=== PATIENT | female | born 1945 | race Caucasian/White ===

== ENCOUNTER → 2017-03-25 | Outpatient (CLI) | payer OTHER ==
[~2017-03-25] MED LIST: ACETAMINOOPHEN-1 TAB PO; ACETAMINOPHEN PO; ADCIRCA20 MG PO; AGGRENOX1 CAP PO; ALB/IPRATROPIUM/1 E1 IH; ALBUTEROL17 G1 INH; ALBUTEROL17 GM; ALBUTEROL17 GM INH; ALBUTEROL2.5 MG/3 M; ALBUTEROL20 ml INH; ALDACTONE PO; ALDACTONE25 MG; ALDACTONE25 MG PO; AMITRYPTYLINE PO; AMLODIPINE BESYL5 MG PO; ANTACID650 MG PO; APAP325 MG PO; APRESOLINE PO; ASPIRIN PO; ASPIRIN1 GM PO; ASPIRIN81 M1 PO; ASPIRIN81 MG; ASPIRIN81 MG PO; ATIVAN PO; ATIVAN2 MG PO; AUGMENTIN PO; AUGMENTIN875 MG PO; AZITHROMYCIN500 MG PO; BENICAR PO; BIDIL PO; BUMEX PO; BUMEX2 MG PO; CAL-CITRATE PL1 EACH PO; CALAN SR PO; CALCIUM + D 6001 TA1 PO; CALCIUM 500 +1 EAC3 PO; CALCIUM500 M1 PO; CARVEDILOL12.5 MG PO; CATAPRES-TTS-20.2 MG PO; CATAPRES0.1 MG PO; CEFTIN PO; CLONIDINE HCL0.3 MG; CLONIDINE HCL0.3 MG PO; CLONIDINE PO; CLOPIDOGREL75 MG PO; COMBIVENT MININEB; COMBIVENT14.7 GM; COREG PO; COREG12.5 MG PO; COVERA HS PO; COZAAR100 MG; COZAAR100 MG PO; FLOVENT HFA12 GM INH; FOSAMAX PO; FOSAMAX70 MG PO; FUROSEMIDE40 MG PO; GLUCOVANCE 5/501 TA1 PO; HALDOL0.5 MG PO; HCTZ PO; HUMIBID; HYDRALAZINE HC100 MG; HYDRALAZINE HC100 MG PO; HYDRALAZINE HCL25 MG; HYDRALAZINE HCL25 MG PO; HYDRALAZINE HCL50 MG PO; ISORDIL PO; ISOSORBIDE DINI10 MG PO; ISOSORBIDE DINI40 M1 PO; K-DUR20 ME1 PO; KCL PO; LANTUS SOLOSTAR3 ML SUBQ; LANTUS100 U/M1 SQ; LANTUS100 U/M1 SUBQ; LANTUS100 U/ML SUBQ; LASIX PO; LASIX20 MG; LASIX20 MG PO; LASIX80 MG PO; LEVEMIR100 U/ML SQ; LIPITOR PO; LIPITOR40 MG; LIPITOR40 MG DOB; LIPITOR40 MG PO; LISINOPRIL PO; LOPRESSOR PO; LOPRESSOR100 MG PO; LORAZEPAM1 MG PO; METOLAZONE2.5 MG PO; METOPROLOL TAR25 MG PO; METOPROLOL TART25 MG PO; METRONIDAZOLE250 MG PO; NABUMETONE PO; NILSTAT PO; NISOLDIPINE17 MG PO; NITROFURANTOIN50 M1 PO; NITROGLYGERIN0.4 MG SL; NORVASC PO; NOVOLOG; NOVOLOG FL100 UNIT/1; NOVOLOG FL100 UNIT/1 SUBQ; NOVOLOG SUBQ; NOVOLOG100 U/M1 SQ; NOVOLOG100 U/M2 SUBQ; NOVOLOG100 U/M3 SQ; NOVOLOG100 U/ML INJ; NOVOLOG100 U/ML SQ; NOVOLOG100 U/ML SUBQ; NOVOLOG100 UNITS/; NOVOLOG100 UNITS/ INJ; OYSTER SHELL C500 MG; PLAVIX PO; PLAVIX300 MG; POSTURE600 MG PO; PREDNISONE PO; PREDNISONE10 MG PO; PREMARIN PO; PREMARIN0.3 MG PO; PREMARIN0.45 MG PO; PRINCIPEN500 M1 PO; PRINIVIL10 MG PO; PRINIVIL40 MG PO; PROCRIT SUBQ; PROCRIT2000 UNIT/; PROCRIT20000 U/ML IJ; PROCRIT20000 U/ML SUBQ; PROTONIX; PROTONIX PO; PROTONIX20 MG PO; PULMICORT0.5 MG/2 M; PULMICORT0.5 MG/2 M IH; SINGULAIR PO; SINGULAIR5 MG PO; SODIUM BICARBO650 MG PO; SUPER CALCIUM1 EACH PO; SYMBICORT PO; TACLONEX OINTME60 GM TP; TOPROL XL 50 MG50 M1 PO; TRICOR PO; TUMS CALCI300 MG( 75; TYLENOL #3 PO; VICODIN PO; VOLMAX4 MG PO; VOSPIRE ER8 MG PO; ZAROXYLYN PO; ZESTRIL40 MG PO; ZITHROMAX PO; ZOLOFT PO; ZOLOFT100 MG PO; ZOLOFT20 MG/1 ML; [UNRECOGNIZED DRUG - CODE] IJ
--- NOTE | ~2017-03-25 | CR63 ---
[facility] A Service of [facility] RADIOLOGY TEXT RESULTS PATIENT: COLBY BORGES LOCATION: [facility] : 44 UNIT #: [id number] AGE: [address]: KIM NATHAN SEX: F ORDER DR: [id number] [facility] [address]. [place], [place] [address] [id number] MR#: [id number] Acc #: [id number] NAME: COLBY BORGES : 1945 SEX: F STUDY DATE/TIME: 03/25/2017 15:13 UNIT: [facility] ROOM: STUDY DESCRIPTION: CR Chest 2 View Attending Physician: Deborah Yusuf Referring Physician: Deborah Yusuf Ordering Physician: Deborah Yusuf Primary Care Physician: Norma Castro M.D. MEDICAL IMAGING REPORT This report is preliminary unless electronic signature is present EXAM PA and lateral chest, 03/25. COMPARISON 04/30/2014 HISTORY Cough, shortness of breath for 1-2 weeks. TECHNIQUE PA and lateral views are obtained. FINDINGS The heart size is normal. There are postop changes of bypass surgery. Chronic blunting of the left costophrenic angle. The lungs are clear with no acute process seen. CONCLUSION Status post CABG. Chronic pleural scarring at the left base. No acute process identified. Dictated by... Bry Proctor M.D. THIS IS AN ELECTRONICALLY VERIFIED REPORT Bry Proctor M.D. at 03/25/2017 5:00 PM DOROTEO/kyle TD: 03/25/2017 16:35 JOB #: [id number] [facility] A Service [facility] RADIOLOGY TEXT RESULTS PATIENT: COLBY BORGES LOCATION: [facility] : 44 UNIT #: [id number] AGE: [address]: KIM NATHAN SEX: F ORDER DR: MEDICAL IMAGING REPORT Page 1 of 1 COPY
== END | disposition home or self-care (01) ==
LOC: CRAD 14:53
DX: R05 Cough (principal); J98.4 Other disorders of lung; Z95.1 Presence of aortocoronary bypass graft
CPT/HCPCS: 71020

== ENCOUNTER 2017-04-18 21:50 | Inpatient (IN) | payer OTHER ==
--- NOTE | ~2017-04-18 | EKG ---
PATIENT: COLBY BORGES UNIT #: [id number] Ventricular Rate: 74 BPM Atrial Rate: 74 BPM P-R Interval: 158 ms QRS Duration: 88 ms Q-T Interval: 418 ms QTC Calculation(Bezet): 463 ms P Veyo: 41 degrees Calculated R Veyo: 5 degrees Calculated T Veyo: 92 degrees Diagnosis Line: Normal sinus rhythm Diagnosis Line: Nonspecific T wave abnormality Diagnosis Line: Abnormal ECG Diagnosis Line: When compared with ECG of 18-APR-2017 21:56, Diagnosis Line: (unconfirmed) Diagnosis Line: Criteria for Septal infarct are no longer Present Diagnosis Line: Confirmed by NASREEN GREGORY MD ([id number]) on 04/20/2017 Diagnosis Line: 4:51:09 PM INTERPRETING MD: RBI MENDOZA
--- NOTE | ~2017-04-18 | CO ---
Unit #: [id number] #: [id number] Patient: COLBY BORGES [id number] [address] [address] [id number] I MR#: [id number] NAME: COLBY BORGES ROOM: 550 Age: 72 Sex: F Admission Date: 04/19/2017 : 1945 Attending Physician: Norma Castro M.D. Primary Care Physician: Norma Castro M.D. CONSULTATION REPORT ADDENDUM MEDICATIONS Solu-Medrol, Levemir, Lovenox, Lipitor, furosemide, sodium bicarbonates, spironolactone, Norvasc, Singulair, carvedilol, Os-Jerod, Combivent, Catapres, hydralazine, and Procrit. ASSESSMENT AND PLAN I will order IV Lasix in between her blood transfusion tonight and additionally I am going to hold her spironolactone to make sure her a.m. potassium does not rise. Dictated by... Steffany Shen M.D. ANNI/milton TD: 04/21/2017 03:16 JOB #: [id number] CONSULTATION REPORT Page 1 of 1 X Steffany Shen MD X CONSULTATION REPORT
--- NOTE | ~2017-04-18 | CO ---
Unit #: [id number] #: [id number] Patient: COLBY BORGES [id number] [address] [place], [place] [address] [id number] I MR#: [id number] NAME: COLBY BORGES ROOM: 550 Age: 72 Sex: F Admission Date: 04/19/2017 : 1945 Attending Physician: Norma Castro M.D. Primary Care Physician: Norma Castro M.D. Consultation Date: 04/19/2017 CONSULTATION REPORT REASON FOR CONSULTATION Cardiovascular management. HISTORY OF PRESENT ILLNESS This is a 72-year-old white female known to Dr. Valverde, with a past medical history of coronary artery disease with previous myocardial infarction, status post coronary artery bypass grafting in 2006. The patient had a right and left cardiac catheterization 09/01/2012, which revealed significant disease in the [place] right coronary artery and LAD. The first diagonal was 90%. Four out of four grafts were patent. PA pressures were elevated at 55/25. The patient was noted to have mitral regurgitation. No left ventriculogram was completed. A FIDELIA was completed on 05/02/2014, which revealed an ejection fraction greater than or equal to 55%, with mild to moderate mitral regurgitation and aortic regurgitation. There was also mild tricuspid regurgitation. Additional past medical history includes hypertension, hyperlipidemia, chronic kidney disease, anemia, osteoarthritis and reformed tobacco abuse. The patient presented to the hospital with shortness of breath. She is a poor historian and is confused to time and situation. There is no family at the bedside. On exam she denies chest pain. She states that the shortness of breath is chronic. She has had some mild lower extremity edema. There are no reports of dizziness, palpitations or syncope. She did fall recently and does have some bruising on her right ankle and foot. It is unclear if she had any precipitating symptoms or loss of consciousness. The family will be contacted for further information. She was admitted to the hospital for shortness of breath and possible congestive heart failure. Labs revealed a BNP of 1,408. Creatinine was 1.9 with a BUN of 35. Hemoglobin was 9.2 and now 7.8. There are no reports of bleeding. Cardiac enzymes were negative. EKG revealed sinus rhythm with a PVC and poor R wave progression. PAST MEDICAL HISTORY 1. Coronary artery disease with previous myocardial infarction, status post coronary artery bypass grafting in 2006. 2. Right and left cardiac catheterization 09/01/2012 revealed mid LAD and right coronary artery [place] disease. First diagonal 90%. Four out of four grafts patent. PA pressure 55/25. Positive mitral regurgitation. No left ventriculogram. See full report for details. 3. FIDELIA 06/30/2012 revealed an ejection fraction of 50%. Mild to moderate mitral and tricuspid regurgitation. Mild aortic regurgitation. 4. Repeat FIDELIA 05/02/2014 revealed an ejection fraction greater than Unit #: [id number] #: [id number] Patient: COLBY BORGES S or equal to 55%. Mild to moderate mitral and aortic regurgitation. Mild tricuspid regurgitation. No AFB, shunt or thrombus. 5. Hypertension, resistant. 6. Hyperlipidemia. 7. Insulin dependent diabetes. 8. Chronic kidney disease stage 3. 9. Chronic anemia, on Procrit. 10. Osteoarthritis. 11. Seizures. 12. Anxiety. 13. Allergy to IV dye/iodine. 14. Reformed tobacco abuse. PAST SURGICAL HISTORY 1. Cardiac catheterization. 2. Coronary artery bypass grafting. 3. EGD and colonoscopy in 2011 with gastritis, esophagitis, diverticular disease and small internal hemorrhoids. SOCIAL HISTORY The patient is a reformed smoker. There are no reports of alcohol or illicit drug use. FAMILY HISTORY Significant for heart disease. ALLERGIES Sulfa and iodine. HOME MEDICATIONS 1. Calcium 600 mg p.o. b.i.d. 2. Lipitor 40 mg p.o. daily. 3. Singulair 10 mg p.o. daily. 4. Hydralazine 100 mg p.o. t.i.d. 5. Clonidine 0.3 mg p.o. t.i.d. 6. Lorazepam 1 mg p.o. t.i.d. 7. Carvedilol 12.5 mg p.o. b.i.d. 8. Amlodipine 5 mg p.o. daily. 9. Spironolactone 12.5 mg p.o. daily. 10. Sodium bicarbonate 650 mg p.o. daily. 11. Ventolin p.r.n. 12. Procrit 40,000 units p.r.n. if hemoglobin is below 10. 13. NovoLog 8 units subcutaneous t.i.d. REVIEW OF SYSTEMS Ten point review of systems is difficult to obtain due to confusion. Please see details in history and physical. PHYSICAL EXAMINATION GENERAL: This is a 72-year-old white female who is pleasantly confused. VITALS: Temperature 98.2, pulse 77, blood pressure 186/59. SKIN: Warm and dry. Pale. NECK: Supple. No jugular venous distension. No hepatojugular reflux. Normal carotid upstrokes. No bruits auscultated. LUNGS: Bilateral breath sounds have rales and rhonchi throughout. Respirations even and unlabored. HEART: S1 and S2. Regular rate and rhythm. No murmurs, rubs or gallops. ABDOMEN: Soft, nontender and nondistended. Positive bowel sounds Unit #: [id number] #: [id number] Patient: COLBY BORGES auscultated. No ascites noted. EXTREMITIES: Bilateral lower extremities have 1+ pitting edema. Dorsalis pedis and posterior tibial pulses 2+. Capillary refill is 3 seconds. DIAGNOSTIC STUDIES IMAGING: Chest x-ray reveals mild vascular prominence. LABORATORY: White blood cell count 6.6, hemoglobin 7.8, hematocrit 24.4, platelets 145, sodium 132, potassium 3.9, chloride 107, CO2 16, BUN 35, creatinine 1.9, glucose 391, BNP 1,408, INR 1.0, troponin 0.05 and 0.05. Previous hemoglobin 9.2. CARDIOVASCULAR: Electrocardiogram reveals sinus rhythm with PVC. Poor R wave. Motion artifacts. ASSESSMENT 1. Mental status changes. 2. Severe anemia. 3. Worsening pulmonary hypertension. 4. Fluid overload. 5. Coronary artery disease with history of coronary artery bypass grafting in 2006. Four out of four grafts patent in 2011. 6. Left ventricular ejection fraction greater than 55% in 04/2014. 7. Chronic kidney disease, stage 3. 8. Hypertension, uncontrolled. 9. Hyperlipidemia. 10. Diabetes mellitus, insulin dependent. PLAN 1. The patient presented to the hospital reportedly with shortness of breath, but she is a poor historian. She was admitted for concern for congestive heart failure and cardiology was consulted. 2. The patient's diuretics will be increased. 3. Will watch renal function carefully. 4. Fecal occult stool will be obtained and the patient will be typed and crossed. 5. If her hemoglobin remains low, she may need to be transfused with packed red blood cells. 6. There are no reports of chest pain. Cardiac enzymes are negative. Will trend labs and follow EKG. 7. The patient needs to be evaluated for cause of the confusion. Dictated by... Olena Maxwell APRN for Linda Good TD: 04/21/2017 08:58 JOB #: [id number] Unit #: [id number] #: [id number] Patient: COLBY BORGES Dictated by... Olena Maxwell APRN for Linda Good TD: 04/21/2017 09:26 JOB #: [id number] CC: Paco/sweetie Please Delete CONSULTATION REPORT Page 1 of 1 X X CONSULTATION REPORT
--- NOTE | ~2017-04-18 | CO ---
Unit #: [id number] #: [id number] Patient: COLBY BORGES [id number] [address] [place], [place] [address] [id number] I MR#: [id number] NAME: COLBY BORGES ROOM: 550 Age: 72 Sex: F Admission Date: 04/19/2017 : 1945 Attending Physician: Norma Castro M.D. Primary Care Physician: Norma Castro M.D. Consultation Date: 04/19/2017 CONSULTATION REPORT REASON FOR CONSULTATION Cardiovascular management. HISTORY OF PRESENT ILLNESS This is a 72-year-old white female known to Dr. Valverde, with a past medical history of coronary artery disease with previous myocardial infarction, status post coronary artery bypass grafting in 2006. The patient had a right and left cardiac catheterization 09/01/2012, which revealed significant disease in the [place] right coronary artery and LAD. The first diagonal was 90%. Four out of four grafts were patent. PA pressures were elevated at 55/25. The patient was noted to have mitral regurgitation. No left ventriculogram was completed. A FIDELIA was completed on 05/02/2014, which revealed an ejection fraction greater than or equal to 55%, with mild to moderate mitral regurgitation and aortic regurgitation. There was also mild tricuspid regurgitation. Additional past medical history includes hypertension, hyperlipidemia, chronic kidney disease, anemia, osteoarthritis and reformed tobacco abuse. The patient presented to the hospital with shortness of breath. She is a poor historian and is confused to time and situation. There is no family at the bedside. On exam she denies chest pain. She states that the shortness of breath is chronic. She has had some mild lower extremity edema. There are no reports of dizziness, palpitations or syncope. She did fall recently and does have some bruising on her right ankle and foot. It is unclear if she had any precipitating symptoms or loss of consciousness. The family will be contacted for further information. She was admitted to the hospital for shortness of breath and possible congestive heart failure. Labs revealed a BNP of 1,408. Creatinine was 1.9 with a BUN of 35. Hemoglobin was 9.2 and now 7.8. There are no reports of bleeding. Cardiac enzymes were negative. EKG revealed sinus rhythm with a PVC and poor R wave progression. PAST MEDICAL HISTORY 1. Coronary artery disease with previous myocardial infarction, status post coronary artery bypass grafting in 2006. 2. Right and left cardiac catheterization 09/01/2012 revealed mid LAD and right coronary artery [place] disease. First diagonal 90%. Four out of four grafts patent. PA pressure 55/25. Positive mitral regurgitation. No left ventriculogram. See full report for details. 3. FIDELIA 06/30/2012 revealed an ejection fraction of 50%. Mild to moderate mitral and tricuspid regurgitation. Mild aortic regurgitation. 4. Repeat FIDELIA 05/02/2014 revealed an ejection fraction greater than or equal to 55%. Mild to moderate mitral and aortic regurgitation. Unit #: [id number] #: [id number] Patient: COLBY BORGES Mild tricuspid regurgitation. No AFB, shunt or thrombus. 5. Hypertension, resistant. 6. Hyperlipidemia. 7. Insulin dependent diabetes. 8. Chronic kidney disease stage 3. 9. Chronic anemia, on Procrit. 10. Osteoarthritis. 11. Seizures. 12. Anxiety. 13. Allergy to IV dye/iodine. 14. Reformed tobacco abuse. PAST SURGICAL HISTORY 1. Cardiac catheterization. 2. Coronary artery bypass grafting. 3. EGD and colonoscopy in 2011 with gastritis, esophagitis, diverticular disease and small internal hemorrhoids. SOCIAL HISTORY The patient is a reformed smoker. There are no reports of alcohol or illicit drug use. FAMILY HISTORY Significant for heart disease. ALLERGIES Sulfa and iodine. HOME MEDICATIONS 1. Calcium 600 mg p.o. b.i.d. 2. Lipitor 40 mg p.o. daily. 3. Singulair 10 mg p.o. daily. 4. Hydralazine 100 mg p.o. t.i.d. 5. Clonidine 0.3 mg p.o. t.i.d. 6. Lorazepam 1 mg p.o. t.i.d. 7. Carvedilol 12.5 mg p.o. b.i.d. 8. Amlodipine 5 mg p.o. daily. 9. Spironolactone 12.5 mg p.o. daily. 10. Sodium bicarbonate 650 mg p.o. daily. 11. Ventolin p.r.n. 12. Procrit 40,000 units p.r.n. if hemoglobin is below 10. 13. NovoLog 8 units subcutaneous t.i.d. REVIEW OF SYSTEMS Ten point review of systems is difficult to obtain due to confusion. Please see details in history and physical. PHYSICAL EXAMINATION GENERAL: This is a 72-year-old white female who is pleasantly confused. VITALS: Temperature 98.2, pulse 77, blood pressure 186/59. SKIN: Warm and dry. Pale. NECK: Supple. No jugular venous distension. No hepatojugular reflux. Normal carotid upstrokes. No bruits auscultated. LUNGS: Bilateral breath sounds have rales and rhonchi throughout. Respirations even and unlabored. HEART: S1 and S2. Regular rate and rhythm. No murmurs, rubs or gallops. ABDOMEN: Soft, nontender and nondistended. Positive bowel sounds auscultated. No ascites noted. Unit #: [id number] #: [id number] Patient: COLBY BORGES EXTREMITIES: Bilateral lower extremities have 1+ pitting edema. Dorsalis pedis and posterior tibial pulses 2+. Capillary refill is 3 seconds. DIAGNOSTIC STUDIES IMAGING: Chest x-ray reveals mild vascular prominence. LABORATORY: White blood cell count 6.6, hemoglobin 7.8, hematocrit 24.4, platelets 145, sodium 132, potassium 3.9, chloride 107, CO2 16, BUN 35, creatinine 1.9, glucose 391, BNP 1,408, INR 1.0, troponin 0.05 and 0.05. Previous hemoglobin 9.2. CARDIOVASCULAR: Electrocardiogram reveals sinus rhythm with PVC. Poor R wave. Motion artifacts. ASSESSMENT 1. Mental status changes. 2. Severe anemia. 3. Worsening pulmonary hypertension. 4. Fluid overload. 5. Coronary artery disease with history of coronary artery bypass grafting in 2006. Four out of four grafts patent in 2011. 6. Left ventricular ejection fraction greater than 55% in 04/2014. 7. Chronic kidney disease, stage 3. 8. Hypertension, uncontrolled. 9. Hyperlipidemia. 10. Diabetes mellitus, insulin dependent. PLAN 1. The patient presented to the hospital reportedly with shortness of breath, but she is a poor historian. She was admitted for concern for congestive heart failure and cardiology was consulted. 2. The patient's diuretics will be increased. DICTATION STOPPED Dictated by... Olena Maxwell APRN for Inocencio Valverde M.D. TR/gz TD: 04/21/2017 08:58 JOB #: [id number] CONSULTATION REPORT Page 1 of 1 X X CONSULTATION REPORT
--- NOTE | ~2017-04-18 | CO ---
Unit #: [id number] #: [id number] Patient: ROHINI BORGES [id number] [address] [place], [place] [address] [id number] I MR#: [id number] NAME: ROHINI BORGES. ROOM: 550 Age: 72 Sex: F Admission Date: 04/19/2017 : 1945 Attending Physician: Norma Castro M.D. Primary Care Physician: Norma Castro M.D. CONSULTATION REPORT REASON FOR CONSULTATION Chronic kidney disease. HISTORY OF PRESENT ILLNESS This 72-year-old white female with coronary artery disease; chronic kidney disease, followed by Dr. Villalpando; type 2 diabetes; asthma; chronic anemia, on Procrit, managed by Dr. Burden, was admitted yesterday for shortness of breath. She is found to be very anemic. Workup so far indicates that her anemia may be the cause of her shortness of breath. Additionally, she has fallen recently and bruised her feet. There is no evidence of any bleeding. PAST MEDICAL HISTORY 1. Chronic kidney disease, stage 3, secondary to diabetes, hypertension, and renovascular disease. She is followed by Dr. Villalpando. 2. Anemia of chronic kidney disease, maintained on Procrit, followed by Dr. Burden. 3. Diabetes with nephropathy, neuropathy, and retinopathy. 4. Renovascular disease. 5. Coronary artery disease, history of CABG. 6. Pulmonary hypertension. 7. Hyperlipidemia. PAST SURGICAL HISTORY CABG, hysterectomy, cholecystectomy, left lower lobe lobectomy of the lung, appendectomy, and left breast cyst removal. ALLERGIES To sulfa, iodine, and IV dye. FAMILY HISTORY Significant for hypertension and peripheral vascular disease. SOCIAL HISTORY She is . Her is present and supportive. She does not drink or smoke. She is a former smoker. REVIEW OF SYSTEMS She denies fever, chills, nausea, or vomiting. No chest pain. She has had some exertional dyspnea, and also fell and had bruises over her legs. Her says she has not required much diuretic and has not had much swelling, and she has been tired. Other 13 systems reviewed, unless noted are negative. Unit #: [id number] #: [id number] Patient: ROHINI BORGES PHYSICAL EXAMINATION VITAL SIGNS: Heart rate is 70, blood pressure is 140/42, and temperature 97.4. I and O shows 1310 mL in. Urine output is 1100 mL out. GENERAL: She is a pale, frail white female, in no acute distress, sitting in a chair. She is alert, oriented, and pleasant. HEENT: Extraocular muscles are intact. No eye drainage or icterus. Oropharynx is pale and clear. NECK: Supple without JVD, thyromegaly, or carotid bruit. CHEST: Shows some bibasilar crackles, right greater than the left. CARDIAC: S1 and S2. Normal sinus rhythm. No gallop or rub. ABDOMEN: Soft, nontender, nondistended, and protuberant. EXTREMITIES: No cyanosis, clubbing, or edema. DIAGNOSTIC STUDIES LABORATORY RESULTS: Shows sodium of 130, potassium of 4.2, BUN of 50, creatinine 2.1, chloride of 103, bicarbonate of 18, glucose of 411. White blood cell count 6.1, hemoglobin is 7.4, and platelet count 143. ASSESSMENT 1. Stage 3 chronic kidney disease. Her volume status looks fairly normal today. She does have some rales in the right base, but that may be chronic. She has no peripheral edema. 2. Shortness of air and fatigue. She could have this related to pulmonary hypertension as well as anemia may be playing a role. 3. Symptomatic anemia. There is no evidence that she has any bleeding. She is maintained on Procrit. PLAN I have discussed Ms. Borges earlier in the day with Dr. Valverde. What may give her the most relief is blood transfusion. We will plan to transfuse her slowly tonight with intermittent Lasix and then we will follow serial exams and laboratories. Thank you very much for allowing me to see Rohini Borges in consultation. We will follow closely with you. Dictated by... Steffany Shen M.D. ANNI/milton TD: 04/21/2017 14:49 JOB #: [id number] CONSULTATION REPORT Page 1 of 1 X Steffany Shen MD X CONSULTATION REPORT
--- NOTE | ~2017-04-18 | DS ---
Unit #: [id number] #: [id number] Patient: ROHINI BORGES [id number] [address] [address] [id number] I MR#: [id number] NAME: ROHINI BORGES. ROOM: 550 Age: 72 Sex: F Admission Date: 04/19/2017 : 1945 Discharge Date: 04/21/2017 Attending Physician: Norma Castro M.D. Primary Care Physician: Norma Castro M.D. DISCHARGE SUMMARY FINAL DIAGNOSES 1. Acute on chronic diastolic congestive heart failure. 2. Asthma exacerbation. 3. Severe anemia, status post packed red blood cell transfusion. 4. Diabetes mellitus. 5. Acute on chronic kidney disease. 6. Dementia. 7. Hypertension. 8. Hyperlipidemia. 9. Osteoarthritis. 10. Seizures. 11. Reformed tobacco abuse. DISCHARGE MEDICATIONS 1. Lorazepam 1 mg p.o. t.i.d. p.r.n. 2. Medrol Dosepak. 3. Spironolactone 12.5 mg daily. 4. Singulair 10 mg daily. 5. Levemir 20 units subcu b.i.d. 6. NovoLog 8 units subcu t.i.d. 7. Hydralazine 100 mg three times a day. 8. Catapres 0.3 mg three times a day. 9. Lipitor 40 mg daily. 10. Procrit as needed. 11. Norvasc 5 mg daily. 12. Coreg 12.5 mg p.o. twice a day. 13. Ventolin inhaler and nebulizer treatment, continue at home. 14. Calcium 600 mg b.i.d. CONSULTATION DURING HOSPITALIZATION 1. Dr. Inocencio Valverde - Cardiology Services. 2. Dr. Bandar Villalpando - Renal Services. LAB WORKUP ON DISCHARGE Hemoglobin A1c 5.7. BMP shows sodium 136, potassium 3.6, chloride 104, BUN 71, creatinine 2.6. CBC shows WBC 7.8, hemoglobin 9.1, hematocrit 27.1 and platelet count of 160. BNP on admission 1408. Chest x-ray shows blunting of the left costophrenic angle. No focal infiltrate. Unit #: [id number] #: [id number] Patient: ROHINI BORGES S HOSPITAL COURSE Ms. Rohini Borges is a 72-year-old female who is very well known to me from office setting, came because of shortness of breath and cough and just not feeling well. Patient was admitted to telemetry unit with a diagnosis of acute on chronic diastolic congestive heart failure and asthma exacerbation. Patient was started on IV steroids and IV diuretics. Patient is doing much better at this time but she has dementia and she has become very agitated and crying. The patient's would like to take her home. We are going to discharge home. The patient's kidney functions did deteriorate secondary to IV diuretics. Dr. Villalpando was consulted. Lasix has been discontinued at this time. Continue spironolactone. Will repeat lab workup in one week. Vital signs on discharge - blood pressure is 164/53, respiratory rate 22, pulse is 70, temperature 98.3. Oxygen saturation is 95%. DISCHARGE INSTRUCTIONS 1. The patient is being discharged home with in stable condition. 2. Medication as per Med Rec. 3. Follow up with primary care provider in one week. 4. Diuretics per cardiology. 5. Follow up with cardiology as scheduled. Please note - echocardiogram was done during hospitalization which shows ejection fraction of 60%. No segmental wall motion abnormalities. Normal structure and function of the aortic root. Mild mitral regurgitation, mild tricuspid regurgitation. Right ventricular systolic pressure is 28. Dictated by... Norma Castro M.D. SHIMA/yusef TD: 04/22/2017 08:09 JOB #: [id number] DISCHARGE SUMMARY Page 1 of 1 X Norma Castro MD X DISCHARGE SUMMARY
--- NOTE | ~2017-04-18 | CR72 ---
[facility] A Service [facility] RADIOLOGY TEXT RESULTS PATIENT: COLBY BORGES LOCATION: CEDOF : 44 UNIT #: [id number] AGE: [address]: Norma Castro MD SEX: F ORDER DR: [id number] [place], [place] [address] [id number] MR#: [id number] Acc #: [id number] NAME: COLBY BORGES. : 1945 SEX: F STUDY DATE/TIME: 04/18/2017 22:47 UNIT: CEDOF ROOM: 19920 STUDY DESCRIPTION: CR Chest Single View Portable Attending Physician: Norma Castro M.D. Ordering Physician: Alysia Charlton M.D. Primary Care Physician: Norma Castro M.D. MEDICAL IMAGING REPORT This report is preliminary unless electronic signature is present EXAM Portable chest HISTORY Shortness of air and chest pain since 04/17/2017. COMPARISON 03/25/2017. FINDINGS Portable view of the chest was obtained. There is mild interstitial prominence without focal infiltrates. There is minimal blunting of the left costophrenic angle. Sternotomy wires are present. IMPRESSION 1. Blunting of the left costophrenic angle. 2. No focal infiltrates are identified. Dictated by... Zane Evans M.D. THIS IS AN ELECTRONICALLY VERIFIED REPORT Zane Evans M.D. at 04/19/2017 5:54 AM AGUILA/rnr TD: 04/19/2017 05:24 JOB #: [id number] MEDICAL IMAGING REPORT [facility] A Service [facility] RADIOLOGY TEXT RESULTS PATIENT: COLBY BORGES LOCATION: CEDOF : 44 UNIT #: [id number] AGE: [address]: Norma Castro MD SEX: F ORDER DR: Page 1 of 1 COPY
--- NOTE | ~2017-04-18 | EKG ---
PATIENT: COLBY BORGES UNIT #: [id number] Ventricular Rate: 93 BPM Atrial Rate: 96 BPM QRS Duration: 74 ms Q-T Interval: 400 ms QTC Calculation(Bezet): 497 ms Calculated T [place]: 125 degrees Diagnosis Line: Normal sinus rhythm with occasional Premature Diagnosis Line: ventricular complexes Diagnosis Line: Septal infarct , age undetermined Diagnosis Line: ST and T wave abnormality, consider lateral ischemia Diagnosis Line: Abnormal ECG Diagnosis Line: When compared with ECG of 15-JUN-2014 10:33, Diagnosis Line: Vent. rate has increased BY 35 BPM Diagnosis Line: Septal infarct is now Present Diagnosis Line: T wave inversion no longer evident in Inferior Diagnosis Line: leads Diagnosis Line: Confirmed by NASREEN GREGORY MD ([id number]) on 04/20/2017 Diagnosis Line: 4:31:07 PM INTERPRETING MD: BRI MENDOZA
--- NOTE | ~2017-04-18 | HP ---
Unit #: [id number] #: [id number] Patient: ROHINI BORGES [id number] [address] [place], [place] [address] [id number] I MR#: [id number] NAME: ROHINI BORGES. ROOM: 550 Age: 72 Sex: F Admission Date: 04/19/2017 : 1945 Attending Physician: Norma Castro M.D. Primary Care Physician: Norma Castro M.D. HISTORY AND PHYSICAL CHIEF COMPLAINT Shortness of breath. HISTORY OF PRESENT ILLNESS Ms. Rohini Borges is a 72-year-old female with multiple medical problems significant heart disease, came because of shortness of breath. A few days ago, she went to Dr. Tom's office and had a fall and sat on her feet and her seat has multiple bruises on. She was able to walk on her feet, did not really complain much of pain. She has been having shortness of breath which is gradually getting worse for the last few days. Even while sitting down, she gets short of breath. She does have orthopnea. Her legs were swelling up. She did not complain of any chest pain. She was brought to the ER and has been admitted to the telemetry unit. Patient is being evaluated in room 550. A lot of history was taken from patient's son and patient's . The patient seems to be comfortable at this time. PAST MEDICAL HISTORY 1. History of significant coronary artery disease, status post CABG. 2. History of valvular heart disease. 3. History of asthma. 4. Diabetes mellitus type 2. 5. Chronic kidney disease stage 3. 6. Hypertension. 7. Hyperlipidemia. 8. Chronic anemia. 9. Seizures. 10. Osteoarthritis. PAST SURGICAL HISTORY 1. History of hysterectomy. 2. Cholecystectomy. 3. Appendectomy. 4. CABG. 5. Left lower lobectomy. HOME MEDICATIONS 1. Calcium 600 mg b.i.d. 2. Lipitor 40 mg daily. 3. Singulair 10 mg daily. 4. Hydralazine 100 mg t.i.d. 5. Clonidine 0.3 mg t.i.d. 6. Lorazepam 1 mg t.i.d. 7. Coreg 12.5 mg b.i.d. Unit #: [id number] #: [id number] Patient: ROHINI BORGES 8. Norvasc 5 mg daily. 9. Aldactone 12.5 mg daily. 10. Antacid 650 mg daily. 11. Ventolin p.r.n. 12. Albuterol sulfate p.r.n. 13. Procrit 40,000 units p.r.n. 14. NovoLog FlexPen 8 units subcu t.i.d. ALLERGIES 1. Sulfa. 2. Iodine. 3. IV contrast. SOCIAL HISTORY Patient lives at home with her who is a shredder tender for her. She is a reformed smoker. No history of alcohol abuse or drug abuse. FAMILY HISTORY Significant for coronary artery disease. REVIEW OF SYSTEMS As per history of present illness. No history of fever, chills or rigors. No history of chest pain. No history of nausea or vomiting. No history of abdominal pain. No history of constipation or diarrhea. No history of syncopal episode. Patient does have multiple bruises. Patient has history of psoriasis and has multiple lesions on her body. PHYSICAL EXAMINATION VITAL SIGNS: Blood pressure 186/59, respiratory rate 16, pulse 77, temperature 98.2, oxygen saturation is 96%. GENERAL: The patient is sitting in the bed. HEAD: Normocephalic. Eye movements are normal. Pale conjunctivae. No nystagmus. Pupils are equal and reactive to light. NECK: Supple. CHEST: Decreased air entry bilateral. HEART: S1, S2 positive, regular rhythm. ABDOMEN: Soft. EXTREMITIES: 1+ edema is present. There is multiple ecchymosis on her feet bilateral. NEUROLOGIC: Patient is awake, alert, oriented times 3 although seems to be somewhat confused. Patient has history of dementia and history of depression. DIAGNOSTIC STUDIES LABORATORY: Troponin less than 0.05. WBC 10.4, hemoglobin 9.2, hematocrit 28.6, platelet count 211. PT/INR 10.3/1.0. Sodium 136, potassium 3.8, BUN 31, creatinine 1.8. Liver enzymes are stable. BNP is 1408. Troponin this morning is less than 0.05. Glucose 447. IMAGING: Chest x-ray was done which shows blunting of the left costophrenic angle, no focal infiltrates are identified. ASSESSMENT AND PLAN 1. The patient is being admitted to telemetry with significant dyspnea. 2. Acute probable diastolic congestive heart failure. 3. Asthma exacerbation. 4. Hyperglycemia secondary to steroids with a history of diabetes mellitus type 2. Unit #: [id number] #: [id number] Patient: ROHINI BORGES 5. History of fall with significant ecchymoses on bilateral feet. 6. Chronic kidney disease, stage 3. 7. History of significant coronary artery disease with history of CABG. 8. Valvular heart disease. 9. Hypertension. 10. Hyperlipidemia. 11. Chronic anemia. PLAN 1. Admit to telemetry unit. 2. IV Solu-Medrol has been started for asthma exacerbation. 3. Lasix is being started for congestive heart failure. 4. Dr. Valverde will be consulted. 5. Mini neb treatment is being started. 6. Home medications have been reviewed and adjusted. 7. Labs will be done again tomorrow morning. 8. Plan of care has been discussed with patient. We are going to start insulin, most likely hyperglycemia is secondary to steroids. 9. Please refer to progress note for further orders. Dictated by Linda Kaiser/juan TD: 04/19/2017 15:03 JOB #: [id number] HISTORY AND PHYSICAL Page 1 of 1 X Norma Castro MD X HISTORY AND PHYSICAL
[~2017-04-18 21:50] MED LIST changes: -ALBUTEROL17 GM; -ALBUTEROL2.5 MG/3 M; -AMLODIPINE BESYL5 MG PO; -ANTACID650 MG PO; -APAP325 MG PO; -CALCIUM 500 +1 EAC3 PO; -CALCIUM500 M1 PO; -HALDOL0.5 MG PO; -HYDRALAZINE HC100 MG PO; -ISOSORBIDE DINI40 M1 PO; -NOVOLOG FL100 UNIT/1 SUBQ; -PREDNISONE10 MG PO; -PROCRIT2000 UNIT/
[2017-04-18] MEDS ORDERED: CALCIUM500 M1 PO (22:16)
[2017-04-18] MEDS ORDERED: CLONIDINE HCL0.3 MG PO (22:17)
[2017-04-18] MEDS ORDERED: LIPITOR40 MG PO (22:17)
[2017-04-18] MEDS ORDERED: SINGULAIR PO (22:17)
[2017-04-18] MEDS ORDERED: HYDRALAZINE HC100 MG PO (22:17)
[2017-04-18] MEDS ORDERED: LORAZEPAM1 MG PO (22:18)
[2017-04-18] MEDS ORDERED: COREG12.5 MG PO (22:18)
[2017-04-18] MEDS ORDERED: AMLODIPINE BESYL5 MG PO (22:19)
[2017-04-18] MEDS ORDERED: ALDACTONE25 MG PO (22:19)
[2017-04-18] MEDS ORDERED: ANTACID650 MG PO (22:20)
[2017-04-18] MEDS ORDERED: ALBUTEROL17 GM (22:21)
[2017-04-18] MEDS ORDERED: PROCRIT2000 UNIT/ (22:22)
[2017-04-18] MEDS ORDERED: ALBUTEROL2.5 MG/3 M (22:22)
[2017-04-18] MEDS ORDERED: NOVOLOG FL100 UNIT/1 SUBQ (22:24)
[2017-04-18 22:36] LABS: POC - CKMB 1.8 ng/mL (0.0-7.9); POC - TROPONIN <0.05 ng/mL (<=0.05)
[2017-04-18 23:52] LABS: BASOPHIL# 0.1 X10e3 (0-0.3); BASOPHIL% 0.6 % (0-2.5); DIFF IND NO; EOSINOPHIL# 0.2 X10e3 (0-0.7); EOSINOPHIL% 1.5 % (0.0-7.0); HEMATOCRIT 28.6 % (35.0-45.0); HEMOGLOBIN 9.2 gm/dL (12.0-16.0); LYMPHOCYTE# 0.8 X10e3 (1.0-3.5); LYMPHOCYTE% 8.1 % (17.0-45.0); MEAN CELL VOLUME 87.5 FL (83-96); MEAN CORPUSCULAR HEMOGLOBIN 28.1 PG (28-34); MEAN CORPUSCULAR HGB CONC 32.1 g/dL (30-36); MEAN PLATELET VOLUME 7.8 FL (6.5-11.5); MONOCYTE# 0.6 X10e3 (0-1.0); MONOCYTE% 5.7 % (3.0-12.0); NEUTROPHIL# 8.7 X10e3 (1.5-7.1); NEUTROPHIL% 84.1 % (40-75); PLATELET COUNT 211 X10e3 (140-420); RED BLOOD COUNT 3.26 X10e (3.90-5.30); RED CELL DISTRIBUTION WIDTH 15.7 % (11.0-15.5); WHITE BLOOD COUNT 10.4 X10e3 (4.0-10.5)
[2017-04-19 00:13] LABS: PROTHROMBIN TIME (PATIENT) 10.3 SECONDS (9.6-11.5)
[2017-04-19 00:17] LABS: ALBUMIN SERUM 3.4 g/dL (3.5-5.0); BILIRUBIN, DIRECT 0.1 mg/dL (0.0-0.2); BILIRUBIN,INDIRECT 0.8 mg/dL (0.0-0.9); BILIRUBIN,TOTAL 0.9 mg/dL (0.2-2.0); BUN/CREATININE RATIO 17.22; CALCIUM SERUM 8.8 mg/dL (8.4-10.2); CREATININE SERUM 1.8 mg/dL (0.6-1.4); GLOM FILT RATE Estimated 27.4 mL/min (>60); POTASSIUM 3.8 mmol/L (3.5-5.1); PROTEIN TOTAL SERUM 6.8 g/dL (6.0-8.3)
[2017-04-19 01:15] LABS: POC - TROPONIN <0.05 ng/mL (<=0.05)
[2017-04-19 08:12] LABS: BUN/CREATININE RATIO 18.42; CALCIUM SERUM 8.3 mg/dL (8.4-10.2); CREATININE SERUM 1.9 mg/dL (0.6-1.4); GLOM FILT RATE Estimated 25.7 mL/min (>60); POTASSIUM 3.9 mmol/L (3.5-5.1)
[2017-04-19 08:40] LABS: BASOPHIL% 0.1 % (0-2.5); HEMATOCRIT 24.4 % (35.0-45.0); HEMOGLOBIN 7.8 gm/dL (12.0-16.0); LYMPHOCYTE# 0.2 X10e3 (1.0-3.5); LYMPHOCYTE% 3.7 % (17.0-45.0); MEAN CELL VOLUME 88.3 FL (83-96); MEAN CORPUSCULAR HGB CONC 31.7 g/dL (30-36); MEAN PLATELET VOLUME 8.3 FL (6.5-11.5); MONOCYTE% 0.5 % (3.0-12.0); NEUTROPHIL# 6.3 X10e3 (1.5-7.1); NEUTROPHIL% 95.7 % (40-75); PLATELET COUNT 145 X10e3 (140-420); RED BLOOD COUNT 2.77 X10e (3.90-5.30); RED CELL DISTRIBUTION WIDTH 15.9 % (11.0-15.5); WHITE BLOOD COUNT 6.6 X10e3 (4.0-10.5)
[2017-04-19 08:41] LABS: DIFF IND YES
[2017-04-19 09:09] LABS: ANISOCYTOSIS SL; PLATELET ESTIMATE NORMAL (NORMAL); POLYCHROMASIA SL
[2017-04-19 22:13] LABS: URINE APPEARANCE CLEAR; URINE BILIRUBIN NEG (NEG); URINE BLOOD NEG (NEG); URINE COLOR YELLOW; URINE GLUCOSE >1000 MG/DL (NEG); URINE KETONE NEG (NEG); URINE LEUKOCYTE ESTERASE NEG (NEG); URINE NITRATE NEG (NEG); URINE PROTEIN 3+ (NEG); URINE SPECIFIC GRAVITY 1.018 (1.003-1.035); URINE UROBILINOGEN 0.2 MG/DL (NEG)
[2017-04-19 22:16] LABS: URINE BACTERIA AUWI NEG (NEGATIVE); URINE SQUAMOUS EPITHELIAL CELL NONE SEEN /[HPF]
[2017-04-19 22:17] LABS: CULTURE INDICATED? NO
[2017-04-20 06:01] LABS: HEMATOCRIT 22.8 % (35.0-45.0); HEMOGLOBIN 7.4 gm/dL (12.0-16.0); MEAN CORPUSCULAR HEMOGLOBIN 28.1 PG (28-34); MEAN CORPUSCULAR HGB CONC 32.3 g/dL (30-36); MEAN PLATELET VOLUME 8.3 FL (6.5-11.5); RED BLOOD COUNT 2.62 X10e (3.90-5.30); RED CELL DISTRIBUTION WIDTH 15.5 % (11.0-15.5); WHITE BLOOD COUNT 6.1 X10e3 (4.0-10.5)
[2017-04-20 06:22] LABS: BUN/CREATININE RATIO 23.8; CALCIUM SERUM 8.8 mg/dL (8.4-10.2); CREATININE SERUM 2.1 mg/dL (0.6-1.4); GLOM FILT RATE Estimated 22.8 mL/min (>60); POTASSIUM 4.2 mmol/L (3.5-5.1)
[2017-04-20] MEDS ORDERED: LANTUS100 U/ML SUBQ (13:08)
[2017-04-21 05:37] LABS: HEMATOCRIT 27.1 % (35.0-45.0); HEMOGLOBIN 9.1 gm/dL (12.0-16.0); MEAN CORPUSCULAR HEMOGLOBIN 28.1 PG (28-34); MEAN CORPUSCULAR HGB CONC 33.6 g/dL (30-36); MEAN PLATELET VOLUME 8.1 FL (6.5-11.5); RED BLOOD COUNT 3.24 X10e (3.90-5.30); RED CELL DISTRIBUTION WIDTH 14.7 % (11.0-15.5); WHITE BLOOD COUNT 7.8 X10e3 (4.0-10.5)
[2017-04-21 06:41] LABS: MEAN CELL VOLUME 83.7 FL (83-96)
[2017-04-21 06:56] LABS: BUN/CREATININE RATIO 27.3; CALCIUM SERUM 9.2 mg/dL (8.4-10.2); CREATININE SERUM 2.6 mg/dL (0.6-1.4); GLOM FILT RATE Estimated 17.6 mL/min (>60); POTASSIUM 3.6 mmol/L (3.5-5.1)
[2017-04-21] MEDS ORDERED: CALCIUM 500 +1 EAC3 PO (15:36)
[2017-04-21] MEDS ORDERED: PREDNISONE10 MG PO (15:37)
[2017-04-21] MEDS ORDERED: LORAZEPAM1 MG PO (15:37)
== END 2017-04-21 16:41 | disposition home or self-care (01) | DRG 291 ==
LOC: CED 21:50 → CEDOF 04-19 00:58 → C5B 04-19 00:58 → CEDOF 04-19 11:02 → C5B 04-21 16:41
PROVIDERS: Emergency Medicine; Internal Medicine Cardiovascular Disease; Physician Assistant Medical
PROC: B24BZZZ Ultrasonography of Heart with Aorta (ICD-10-PCS; principal; 2017-04-20)
PROC: 30233N1 Transfusion of Nonautologous Red Blood Cells into Peripheral Vein, Percutaneous Approach (ICD-10-PCS; 2017-04-20)
DX: I13.0 Hypertensive heart and chronic kidney disease with heart failure and stage 1 through stage 4 chronic kidney disease, or unspecified chronic kidney disease (principal); I50.33 Acute on chronic diastolic (congestive) heart failure; N17.9 Acute kidney failure, unspecified; E11.22 Type 2 diabetes mellitus with diabetic chronic kidney disease; E11.65 Type 2 diabetes mellitus with hyperglycemia; J45.901 Unspecified asthma with (acute) exacerbation; F03.90 Unspecified dementia, unspecified severity, without behavioral disturbance, psychotic disturbance, mood disturbance, and anxiety; I27.2 Other secondary pulmonary hypertension; N18.3 Chronic kidney disease, stage 3 (moderate); Z87.891 Personal history of nicotine dependence; Z79.4 Long term (current) use of insulin; D64.9 Anemia, unspecified; E78.5 Hyperlipidemia, unspecified; M19.90 Unspecified osteoarthritis, unspecified site; R56.9 Unspecified convulsions; I25.10 Atherosclerotic heart disease of native coronary artery without angina pectoris; Z95.1 Presence of aortocoronary bypass graft; I08.3 Combined rheumatic disorders of mitral, aortic and tricuspid valves; I25.2 Old myocardial infarction; R41.82 Altered mental status, unspecified; Z90.49 Acquired absence of other specified parts of digestive tract; Z90.710 Acquired absence of both cervix and uterus; Z90.2 Acquired absence of lung [part of]; Z91.041 Radiographic dye allergy status; Z88.2 Allergy status to sulfonamides; Z82.49 Family history of ischemic heart disease and other diseases of the circulatory system
CPT/HCPCS: 36415; 71010; 80048; 80076; 81003; 82553; 82947; 83036; 83880; 84484; 85025; 85027; 85610; 86850; 86900; 86901; 86923; 93005; 93306; 94640; 94760; 96374; 99285; J1650; J1815; J1940; J2920; J2930; P9016; Q4081

== ENCOUNTER 2017-04-27 02:54 | Inpatient (IN) | payer OTHER ==
--- NOTE | ~2017-04-27 | DS ---
Unit #: [id number] #: [id number] Patient: COLBY BROGES [id number] [address] [address] [id number] I MR#: [id number] NAME: COLBY BORGES ROOM: 304 Age: 72 Sex: F Admission Date: 04/27/2017 : 1945 Discharge Date: 05/01/2017 Attending Physician: Norma Castro M.D. Primary Care Physician: Norma Castro M.D. DISCHARGE SUMMARY DISCHARGE DIAGNOSES 1. Status post acute hypoxemic respiratory failure. 2. Acute on chronic diastolic heart failure. 3. Pulmonary hypertension. 4. Status post acute exacerbation of chronic obstructive pulmonary disease. 5. Acute kidney injury on chronic kidney disease stage 3. 6. Anemia of chronic disease. 7. Dementia. 8. Questionable urinary tract infection which had ruled out: Unremarkable urinalysis. Urine culture so far negative. DISCHARGE MEDICATIONS 1. Haldol 0.5 mg p.o. q. h.s. p.r.n. for agitation. 2. Ativan 1 mg p.o. t.i.d. p.r.n. as a home dose. 3. Coreg 25 mg b.i.d. 4. Norvasc 5 mg b.i.d. 5. Lasix 40 mg p.o. b.i.d. 6. Lipitor 40 mg at bedtime. 7. Clonidine 0.3 mg t.i.d. 8. Hydralazine 100 mg t.i.d. 9. Sliding scale insulin. 10. Lantus 5 units subcu q. h.s. 11. Singulair 10 mg at bedtime. 12. Albuterol/Ventolin p.r.n. for shortness of air and nebulizer p.r.n. for shortness of air as well. 13. Sodium bicarbonate 650 mg p.o. daily. 14. Tylenol p.r.n. 15. Calcium 600 mg b.i.d. 16. Aldactone 12.5 mg daily. 17. Calcium and vitamin D, one tablet b.i.d. 18. Isosorbide 40 mg p.o. b.i.d. CONSULTS DURING THIS HOSPITAL STAY 1. Dr. Hernandez - Cardiology. 2. Dr. Nicholson - Nephrology. 3. Dr. Larose - Pulmonology. LABS AND DIAGNOSTICS AN PROCEDURES DURING THIS HOSPITAL STAY Urine culture as above, so far negative. Chest x-ray - pulmonary edema, persistent small bowel effusions. No pneumothorax. Unit #: [id number] #: [id number] Patient: COLBY BORGES Renal ultrasound - no significant elevation of velocities in the left renal arterial system to suggest renal artery stenosis. Last chest x-ray from April 30 - interstitial edema and bilateral pleural effusions appear to resolve. No acute chest findings. Stable mild cardiac enlargement with CABG changes. Blood culture to this date negative. Actually, one out of two showed Micrococcus species, most likely skin contaminate. Second set negative. The patient is afebrile. Last white count from April 30 is 10.3. HISTORY OF PRESENT HOSPITAL STAY Please refer to H and P done by my colleague for initial presentation on this female. ACTIVE PROBLEMS AND DIAGNOSES Acute hypoxemic respiratory failure and acute exacerbation of chronic obstructive pulmonary disease: Was followed by pulmonology and treated with bronchodilators. Currently stable. No sign of respiratory distress. Stable from pulmonary standpoint to be discharged. Was treated also with empiric antibiotics. Last chest x-ray as above. Acute on chronic diastolic heart failure. Was managed per cardiology. Continue Aldactone and Lasix at 40 mg b.i.d. Continue beta yany. Stable to be discharged from cardiology. Outpatient followup with cardiology. History of coronary artery disease, status post coronary artery bypass graft: Continue medical management. Continue Imdur. Acute kidney injury on chronic kidney disease: Last BUN and creatinine 77 and 2.9. Stable from renal standpoint to be discharged with outpatient followup, status post evaluation per nephrology. Anemia of chronic disease, also stable. Last H and H from April 30 10.2 and 31.4. Dementia. DISPOSITION Going home with home health and 02/06 home family care. Follow up with Dr. Castro in two to three days and cardiology and nephrology as an outpatient. Dictated by... Jorje Pack M.D. ALLISON/yusef TD: 05/02/2017 05:54 JOB #: [id number] Unit #: [id number] #: [id number] Patient: COLBY BORGES S DISCHARGE SUMMARY Page 1 of 1 X Jorje Pack MD X DISCHARGE SUMMARY
--- NOTE | ~2017-04-27 | CR72 ---
[facility] A Service of [facility] RADIOLOGY TEXT RESULTS PATIENT: COLBY BORGES LOCATION: [address] : [birth year] UNIT #: [id number] AGE: [address]: Norma Castro MD SEX: F ORDER DR: [id number] [facility] [address] [place], [place] [address] [id number] I MR#: [id number] Acc #: [id number] NAME: COLBY BORGES : 1945 SEX: F STUDY DATE/TIME: 04/27/2017 UNIT: [facility] ROOM: [facility] STUDY DESCRIPTION: CR Chest Single View Portable Attending Physician: Norma Castro M.D. Ordering Physician: Baltazar Mejia M.D. Primary Care Physician: Norma Castro M.D. MEDICAL IMAGING REPORT This report is preliminary unless electronic signature is present EXAM Portable chest 04/27 INDICATIONS Shortness of air since the midnight. TECHNIQUE AP portable chest is compared with 04/18/2017. FINDINGS Cardiomegaly stable status post CABG. There has been interval development of pulmonary edema with persistent small bilateral effusions. No pneumothorax. Dictated by... Kevin Larson Jr., M.D. THIS IS AN ELECTRONICALLY VERIFIED REPORT Kevin Larson Jr., M.D. at 04/27/2017 9:25 PM RLK/eduardo TD: 04/27/2017 11:15 JOB #: [id number] MEDICAL IMAGING REPORT Page 1 of 1 COPY
--- NOTE | ~2017-04-27 | CO ---
Unit #: [id number] #: [id number] Patient: COLBY BORGES [id number] [facility]. [place], [place] [address] [id number] I MR#: [id number] NAME: COLBY BORGES ROOM: [facility] Age: 72 Sex: F Admission Date: 04/27/2017 : 1945 Attending Physician: Norma Castro M.D. Primary Care Physician: Norma Castro M.D. Consultation Date: 04/27/2017 CONSULTATION REPORT HISTORY OF PRESENT ILLNESS Ms. Borges is a 72-year-old white female, who has a longstanding history of dementia, congestive heart failure and chronic obstructive pulmonary disease. She also has chronic renal insufficiency. She was admitted to [facility] on the 04/27/2017 for shortness of breath. She was just released on 04/21/2017 for similar episode. She was sent home on steroids and p.o. antibiotics. She presented today with increasing shortness of breath, but can provide very little history due to her dementia. Last record of EF was 60% and has had mild to moderate regurgitation. He has evidence of slight pulmonary hypertension from chronic obstructive pulmonary disease. He is normally followed by Dr. Castro and Dr. Villalpando. PAST MEDICAL HISTORY Otherwise significant for chronic kidney disease, secondary anemia, diabetes with neuropathy, nephropathy and retinopathy, renal vascular disease, coronary artery disease status post bypass grafting, chronic obstructive pulmonary disease with evidence of slight hypertension, hyperlipidemia. In the past, she has had bypass grafting, hysterectomy, cholecystectomy, left lower lobectomy of the lung, appendectomy and left breast cyst removal. ALLERGIES Listed to sulfa, iodine, and IV dye. FAMILY HISTORY Significant for peripheral vascular disease. SOCIAL HISTORY Positive for smoking in the past. She is and has a supportive . REVIEW OF SYSTEMS Unable to be obtained due to her dementia. MEDICATIONS Recent discharge medications include lorazepam, Medrol Dosepak, spironolactone, Singulair, Levemir 20 units b.i.d., NovoLog 8 subcu t.i.d., hydralazine 100 three times a day, Catapres 0.3 three times a day, Lipitor 40 daily, Procrit as needed, Norvasc 5, Coreg 12.5 b.i.d., Ventolin inhaler and calcium 600 b.i.d. PHYSICAL EXAMINATION GENERAL: She is in no acute distress at this time. Unit #: [id number] #: [id number] Patient: COLBY BORGES HEAD AND NECK: Significant for mild alopecia in a female balding pattern. Pupils are round and reactive to light. Sclerae nonicteric. Oropharynx is clear. There is no supraclavicular or cervical adenopathy. Trachea was midline. CHEST: Shows increased AP diameter with rales bilaterally. Systolic murmur is present without rubs or gallops. She was in no acute respiratory distress. ABDOMEN: Soft, nontender. There is no enlargement of liver or spleen. EXTREMITIES: There is no clubbing, cyanosis. Minimal edema. JOINTS: Not inflamed or swollen. SKIN: Free for rashes or ulcerations. NEUROLOGIC: She is awake, alert, but disoriented and showed no gross focal defects. DIAGNOSTIC STUDIES LABORATORY RESULTS: Sodium was 136, potassium 4.6, chloride 108, CO2 of 17, glucose 174, BUN of 54, creatinine 2.1. Troponin was negative. Arterial blood gases showed a pH of 7.35, PCO2 of 31, PO2 of 134 on BiPAP of 15/6. White count 24 probably secondary to steroids. Hematocrit of 40 and platelets of 346. IMAGING STUDIES: Chest x-ray showed no acute infiltrates at this time, but she had some degree of cardiomegaly. IMPRESSION Probable acute exacerbation of chronic obstructive pulmonary disease. We will plan on steroids, p.o. antibiotics, inhaled bronchodilators and supplemental oxygen. Her requests [id number] illness or status due to her longstanding dementia. Dictated by... Linda Dave/milton TD: 04/27/2017 19:15 JOB #: [id number] CONSULTATION REPORT Page 1 of 1 X Willi Aldana MD CONSULTATION REPORT
--- NOTE | ~2017-04-27 | CO ---
Unit #: [id number] #: [id number] Patient: ROHINI BORGES [id number] [facility] [address]. [place], [place] [address] [id number] I MR#: [id number] NAME: ROHINI BORGES ROOM: 304 Age: 72 Sex: F Admission Date: 04/27/2017 : 1945 Attending Physician: Norma Castro M.D. Primary Care Physician: Norma Castro M.D. Consultation Date: 04/28/2017 CONSULTATION REPORT REASON FOR CONSULTATION Dementia, anxiety, and depression. HISTORY OF PRESENT ILLNESS Ms. Rohini Borges is a 72-year-old white female, seen in room 18 CCU 3 on 04/28/2017 at [facility]. The patient was sitting comfortably in chair. Confused, seems very anxious. The patient needing redirection. The patient's was at the bedside. The patient denied any suicidal or homicidal ideation, but guarded, paranoid. The patient was admitted on with diastolic CHF. The patient has multiple health conditions. History of dementia. The patient was on Klonopin for anxiety. Subsequently, medication was stopped and the patient started having increasing problem with anxiety, and agitation. PAST PSYCHIATRIC HISTORY Remarkable for history of dementia and anxiety. MEDICAL HISTORY Remarkable for history of diastolic CHF, asthma, anemia, diabetes mellitus type unknown, chronic kidney disease, dementia, hypertension, hyperlipidemia, osteoarthritis, seizure, and history of tobacco use. MEDICATIONS The patient is on calcium, Lipitor, Singulair, hydralazine, clonidine, Coreg, Norvasc, Aldactone, sodium bicarbonate, Ventolin, NovoLog, Lantus, and calcium. Upon admission, lorazepam 1 mg three times a day was discontinued. FAMILY HISTORY AND SOCIAL HISTORY The patient has a good support system from her . No history of abuse. No history of substance abuse. REVIEW OF SYSTEMS Complete review of systems is unremarkable. MENTAL STATUS EXAMINATION Vital signs; temperature 98.1, pulse 88, respirations 21, blood pressure 84/66, and oxygen saturation 96%. General appearance; the patient dressed in hospital attire, seemed somewhat restless and anxious. Attention and concentration, poor. Speech, slow. Orientation in self. Mood and affect, labile. Thought process, circumstantial. Thought content, guarded, paranoid, but denied any thoughts of harming self or others. Recent and remote memory, poor. Language, fair. Fund of knowledge, poor. Unit #: [id number] #: [id number] Patient: ROHINI BORGES Insight and judgment, fair to impaired. DIAGNOSES Psychiatric: Major neurocognitive disorder secondary to Alzheimer disease with behavioral disturbances, F02.81. Anxiety disorder, not otherwise specified, F40.01. ASSESSMENT/PLAN 1. Supportive psychotherapy and psychoeducation provided to the patient and family. The patient unable to comprehend much. 2. Educated about benefits and side effects of medication and course and prognosis of illness. The patient's had explained about treatment plan. We will start the patient on Risperdal 0.25 mg twice daily for mood stabilization for the control of above-mentioned behavior and also resume Ativan 1 mg three times a day and monitor for any sedation. Advised to hold medication if the patient is too sleepy. The patient was able to tolerate this medication fairly well at home. Please feel free to call if any questions, telephone #[phone]. Dictated by... Linda Vega/milton TD: 04/29/2017 15:03 JOB #: [id number] CONSULTATION REPORT Page 1 of 1 X Anurag Preston MD X CONSULTATION REPORT
--- NOTE | ~2017-04-27 | CR72 ---
[facility] A Service of [facility] RADIOLOGY TEXT RESULTS PATIENT: COLBY BORGES LOCATION: [facility] : 44 UNIT #: [id number] AGE: [address]: Norma Castro MD SEX: F ORDER DR: [id number] [facility] [address] [place], [place] [address] [id number] I MR#: [id number] Acc #: [id number] NAME: COLBY BORGES : 1945 SEX: F STUDY DATE/TIME: 04/30/2017 12:38 UNIT: [address] ROOM: [facility] STUDY DESCRIPTION: CR Chest Single View Portable Attending Physician: Norma Castro M.D. Ordering Physician: Russ Larose M.D. Primary Care Physician: Norma Castro M.D. MEDICAL IMAGING REPORT This report is preliminary unless electronic signature is present EXAM AP portable chest 04/30/2017 HISTORY 72-year-old female with shortness of breath which began a couple of days ago but has gotten worse. COMPARISON AP portable chest 04/27/2017. FINDINGS No acute airspace disease. Heart size is mildly enlarged but stable with signs of prior median sternotomy and CABG. No pleural effusion, pneumothorax or acute osseous abnormality. IMPRESSION 1. Features of interstitial edema and bilateral pleural effusions described on 04/27/2017 appear resolved. No acute chest findings. 2. Stable mild cardiac enlargement with CABG changes. Dictated by... Yusra Harvey M.D. THIS IS AN ELECTRONICALLY VERIFIED REPORT Yusra Harvey M.D. at 05/01/2017 8:36 AM MELANIE/justina TD: 04/30/2017 15:55 JOB #: [id number] MEDICAL IMAGING REPORT [facility] A Service of [facility] RADIOLOGY TEXT RESULTS PATIENT: COLBY BORGES LOCATION: [facility] : 43 UNIT #: [id number] AGE: [address]: Nomra Castro MD SEX: F ORDER DR: Page 1 of 1 COPY
--- NOTE | ~2017-04-27 | EKG ---
PATIENT: COLBY BORGES UNIT #: [id number] Ventricular Rate: 113 BPM Atrial Rate: 110 BPM QRS Duration: 70 ms Q-T Interval: 296 ms QTC Calculation(Bezet): 406 ms Calculated R [place]: 4 degrees Calculated T [place]: 111 degrees Diagnosis Line: Poor data quality Diagnosis Line: ? Junctional rhythm with retrograde conduction Diagnosis Line: Septal infarct , age undetermined Diagnosis Line: ST and T wave abnormality, consider lateral ischemia Diagnosis Line: Abnormal ECG Diagnosis Line: No previous ECGs available Diagnosis Line: Confirmed by JOSE MENENDEZ MD ([id number]) on Diagnosis Line: 04/27/2017 11:13:12 AM INTERPRETING MD: YVONNE
--- NOTE | ~2017-04-27 | CO ---
Unit #: [id number] #: [id number] Patient: COLBY BORGES [id number] [address] [address] [id number] I MR#: [id number] NAME: COLBY BORGES ROOM: [facility] Age: 72 Sex: F Admission Date: 04/27/2017 : 1945 Attending Physician: Norma Castro M.D. Primary Care Physician: Norma Castro M.D. Consultation Date: 04/27/2017 CONSULTATION REPORT REASON FOR CONSULTATION Renal insufficiency. Thank you very much for asking me to see this patient in consultation. HISTORY OF PRESENT ILLNESS Ms. Borges is a 72-year-old female with history of chronic kidney disease, stage 4 now, who presented to the hospital again last night with increasing shortness of breath. Upon presentation, the patient was noted to have a blood pressure greater than 200 systolic as well as and felt to have some fluid overload versus COPD exacerbation. She was admitted and put on BiPAP. Given IV diuretics as well as vancomycin, tobramycin, and Zithromax; but those have been discontinued by Pulmonary now. She is breathing better. She does have a history of some underlying dementia. The patient was just here in the hospital and was discharged on 04/21/2017, where she has some congestive heart failure as well as worsening creatinine, was up to 2.6 at that time, with her baseline usually in the high 1's. In reviewing upon presentation here, she had a BUN and creatinine of 56 and 2.3. She has a history of renal artery stenosis. In reviewing the records, she was status post bilateral stents in 2011. Although I do not see any further studies on it at that time. PAST MEDICAL HISTORY History of chronic kidney disease, stage 4; history of diabetes mellitus; history of hypertension; history of renal artery stenosis, status post stents in 2011, followed by Dr. Freddy Villalpando in our group; history of anemia of chronic disease, on intermittent Procrit by Dr. Burden; history of diabetes mellitus with complications including neuropathy, retinopathy, nephropathy; history of atherosclerotic coronary artery disease, status post coronary artery bypass graft; history of pulmonary hypertension; history of hyperlipidemia; history of some dementia; status post coronary artery bypass graft; status post hysterectomy; status post cholecystectomy; status post left lower lobectomy; status post appendectomy. ALLERGIES Include sulfa, iodine, and IV dye. FAMILY HISTORY Positive for vascular disease and hypertension SOCIAL HISTORY She is . Lives with her . No smoking, although did in the past. No alcohol. Unit #: [id number] #: [id number] Patient: COLBY BORGES REVIEW OF SYSTEMS She denies any headaches, dizziness, visual problems, sinus problems. No cough or hemoptysis. No neck pain or neck stiffness. She did have some chest pain . Upon presentation, but that has resolved. She has had shortness of breath over the last 24 hours, but that is improving. She denies any abdominal pain, nausea, vomiting, diarrhea, or urinary symptoms. No significant swelling. No recent seizures, strokes, or skin rashes. MEDICATIONS Medications upon discharge included, 1. Lorazepam 1 mg t.i.d. p.r.n. 2. Medrol Dosepak. 3. Spironolactone 12.5 mg a day. 4. Singular. 5. Insulin. 6. Hydralazine 100 mg t.i.d. 7. Catapres 0.3 mg t.i.d. 8. Lipitor 40 mg a day. 9. Norvasc 5 mg a day. 10. Coreg 12.5 mg b.i.d. 11. Calcium pill b.i.d. 12. Her Lasix was held due to worsening creatinine when she was diuresed in last hospitalization. PHYSICAL EXAMINATION GENERAL: She is alert, a little confused. VITAL SIGNS: Temperature 100.5, pulse 79 to 121, blood pressure 137 to 230 over 44 to 107. Her input is not recorded. Output has been 600+. She has Smith catheter in currently. HEENT: Normocephalic and atraumatic. Pupils are equal, round, and reactive to light. Extraocular muscles are intact. Hearing appears normal. Mouth clear. No erythema. No exudate. NECK: Supple. No adenopathy. CARDIAC: She has regular rate and rhythm without a rub. No S3 or S4. LUNGS: She has some decreased breath sounds at the bases. Upper lungs are clear now. ABDOMEN: Bowel sounds are positive. Nontender. Soft. No masses. No hepato-organomegaly noted. EXTREMITIES: A very trace lower extremity swelling. NEUROLOGIC: Again, alert, a little confused, able to move all extremities. : Smith catheter in place. DIAGNOSTIC STUDIES LABORATORY RESULTS: This morning shows sodium 133, potassium 4.7, chloride is 109, bicarb is 15, BUN and creatinine are 54 and 2.1, glucose 215, albumin is 3.4. Her BNP is at 1070. Lactic acid 2.8. ABG showed a pH of 7.358, pCO2 of 31, pO2 134. Her UA shows a specific gravity of 1.013, positive glucose, positive protein, negative rbc's, negative wbc's. White count 24,300 in the serum with a hemoglobin of 12.4, platelets 246,000. ASSESSMENT AND PLAN 1. Chronic kidney disease, stage 4. The patient's creatinine is better than where it was last week, although a little bit worse from her baseline unless this is her true baseline. We will certainly follow her input and Unit #: [id number] #: [id number] Patient: COLBY BORGES S output. I doubt we need to do any further workup at this time except for as what mentioned below. Would continue to avoid long-term use of PPIs, nonsteroidals, and other nephrotoxins. I agree with diuresis for now. 2. Hypertension. Blood pressure is elevated over 200. I wonder if she has diastolic dysfunction with worsening heart failure with high blood pressure and it improves with improvement of her blood pressure. She did have a history of renal artery stenosis, status post stents in 2011 and I wonder if those are failing her. We will check a renal artery duplex scan to look at it and see if she has any significant vascular disease again, although it is not an ideal test at this time. I agree with current antihypertensive medicines. Certainly if blood pressure becomes real difficult, we could consider putting her on a very low dose SANTA inhibitor, although certainly will have to watch her potassium and creatinine very slowly. 3. Shortness of breath, possible from diastolic congestive heart failure versus chronic obstructive pulmonary disease versus pneumonia versus other. Per Cardiology and Pulmonary. Continue IV Lasix for now. 4. Anemia. Hemoglobin is good. 5. History of some mild underlying dementia. 6. Metabolic acidosis with a bicarb of 15, I agree with oral bicarbonate. We will continue to follow. Check labs in the morning. Thank you very much. Dictated by... Linda Aquino/milton TD: 04/27/2017 18:11 JOB #: [id number] CONSULTATION REPORT Page 1 of 1 X Steve Nicholson MD CONSULTATION REPORT
--- NOTE | ~2017-04-27 | CO ---
Unit #: [id number] #: [id number] Patient: ROHINI BORGES S [id number] [facility] [address]. [place], [place] [address] [id number] I MR#: [id number] NAME: ROHINI BORGES ROOM: 304 Age: 72 Sex: F Admission Date: 04/27/2017 : 1945 Attending Physician: Norma Castro M.D. Primary Care Physician: Norma Castro M.D. Consultation Date: 04/29/2017 CONSULTATION REPORT REASON FOR CONSULTATION Followup. DISCUSSION Ms. Rohini Borges is a 72-year-old white female, seen in room 304, bed 1 on 04/29/2017 at [facility]. The patient's was sitting at the bedside. The patient was sleepy, drowsy, but according to much better since medication started. The patient is resting, able to sleep better last night. Redirectable and cooperative, but still confused. Problem with memory, diagnosed with dementia. The patient's vital signs; temperature 98.4, pulse 81, respirations 16, blood pressure 134/63, and oxygen saturation 97%. The patient's is still looking forward to taking her home once the patient is medically cleared. REVIEW OF SYSTEMS Complete review of systems unremarkable. MENTAL STATUS EXAMINATION Vital signs, please see above. General appearance, the patient dressed in hospital attire. Attention span and concentration, poor. Speech, slow and minimal. Oriented in self. Mood and affect, labile. Thought process, circumstantial. Thought content, guarded and paranoid. Recent and remote memory, poor. Language, fair. Fund of knowledge, impaired. Insight and judgment, impaired. 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 ASSESSMENT/PLAN 1. Supportive psychotherapy and psychoeducation provided to the patient and family. The patient unable to comprehend much at this time. 2. Advised to continue with current combination of medication and make further adjustment of medication if needed. Please feel free to call if any questions, telephone #[phone]. Dictated by... Anurag Preston M.D. AMAN/miltno ALMODOVAR: 04/29/2017 17:04 TD: 04/29/2017 23:39 Unit #: [id number] #: [id number] Patient: ROHINI BORGES JOB #: [id number] CONSULTATION REPORT Page 1 of 1 X Anurag Preston MD CONSULTATION REPORT
--- NOTE | ~2017-04-27 | US78 ---
[facility] A Service of [facility] & [facility] RADIOLOGY TEXT RESULTS PATIENT: COLBY BORGES LOCATION: [facility] 304-01 : 44 UNIT #: [id number] AGE: [address]: Norma Castro MD SEX: F ORDER DR: [id number] [facility] [address] [place], [place] [address] [id number] I MR#: [id number] Acc #: [id number] NAME: COLBY BORGES. : 1945 SEX: F STUDY DATE/TIME: 04/28/2017 13:50 UNIT: C3A PCU ROOM: [facility] STUDY DESCRIPTION: US Kidney Duplex Complete Attending Physician: Norma Castro M.D. Ordering Physician: Tim Nicholson M.D. Primary Care Physician: Norma Castro M.D. MEDICAL IMAGING REPORT This report is preliminary unless electronic signature is present EXAM Renal Doppler HISTORY 72-year-old female, chronic kidney disease, hypertension, evaluate for renal artery stenosis. Patient has had a right renal artery stent placed in 2012. FINDINGS 2-D and Doppler evaluation was performed of the kidneys and renal vascular bilaterally. The right kidney measures 11 cm in length; the left kidney measures 12 cm in length. The following peak systolic velocities were obtained. Right renal artery proximal 251 cm/sec, right renal artery mid 201 cm/sec, right renal artery distally 76 cm/sec, right segmental artery 40 cm/sec, right arcuate artery 20 cm/sec. Left renal artery proximal 106 cm/sec, left renal artery mid 101 cm/sec, left renal artery distal 71 cm/sec, left segmental artery 36 cm/sec, left arcuate renal artery is 21 cm/sec, aortic velocities measured up to 132 cm/sec. Renal artery to aortic ratio was 1.9 on the right, 0.8 on the left. Study was technically challenging due to the patient's inability to breathhold for the examination. There is thinning of the renal cortex bilaterally, which would support chronic renal disease. No hydronephrosis. IMPRESSION 1. Technically challenging study due to the patient's inability to breathhold. Elevated velocities within the proximal and mid-right renal artery does suggest hemodynamically significant stenosis and STS. [facility] A Service of [facility] RADIOLOGY TEXT RESULTS PATIENT: COLBY BORGES LOCATION: C3A 304-01 : 44 UNIT #: [id number] AGE: [address]: Norma Castro MD SEX: F ORDER DR: this apparently corresponds to the site of previous stenting. If clinically warranted, further evaluation with CT angiography may be warranted for more thorough and precise evaluation. 2. No significant elevation of velocities in the left renal arterial systems to suggest renal artery stenosis on the left. Dictated by... Fabiano Anderson M.D. THIS IS AN ELECTRONICALLY VERIFIED REPORT Fabiano Anderson M.D. at 04/29/2017 3:08 PM KEVIN/augustus TD: 04/29/2017 03:35 JOB #: [id number] MEDICAL IMAGING REPORT Page 1 of 1 COPY
--- NOTE | ~2017-04-27 | EKG ---
PATIENT: COLBY BORGES UNIT #: [id number] Ventricular Rate: 91 BPM Atrial Rate: 85 BPM QRS Duration: 82 ms Q-T Interval: 382 ms QTC Calculation(Bezet): 469 ms Calculated R [place]: 16 degrees Calculated T [place]: 88 degrees Diagnosis Line: Atrial fibrillation with premature ventricular or Diagnosis Line: aberrantly conducted complexes Diagnosis Line: Abnormal ECG Diagnosis Line: When compared with ECG of 27-APR-2017 03:07, Diagnosis Line: Nonspecific T wave abnormality now evident in Diagnosis Line: Inferior leads Diagnosis Line: T wave amplitude has decreased in Anterior leads Diagnosis Line: Nonspecific T wave abnormality has replaced Diagnosis Line: inverted T waves in Lateral leads Diagnosis Line: Confirmed by GERMANIA LLANOS MD ([id number]) on Diagnosis Line: 04/28/2017 10:06:10 PM INTERPRETING MD: REINALDO
--- NOTE | ~2017-04-27 | HP ---
Unit #: [id number] #: [id number] Patient: COLBY BORGES [id number] [address] [address] [id number] I MR#: [id number] NAME: COLBY BORGES. ROOM: [facility] Age: 72 Sex: F Admission Date: 04/27/2017 : 1945 Attending Physician: Norma Castro M.D. Primary Care Physician: Norma Castro M.D. HISTORY AND PHYSICAL HISTORY OF PRESENT ILLNESS The patient is a 72-year-old white female with history of diastolic CHF, asthma, anemia, diabetes mellitus, chronic kidney disease, hypertension, hyperlipidemia, seizure disorder, osteoarthritis. She was recently here 04/19 to 04/21 with acute on chronic diastolic CHF, severe anemia requiring blood transfusion, acute on chronic kidney disease, discharged home. Apparently, over that period of time, she slowly but surely getting worse with increased congestion, cough, shortness of air. No chest pain. The patient arrived in the emergency room in acute respiratory failure requiring BiPAP treatment. Lactic acid was 2.8. She had a metabolic acidosis. Repeat lactic acid was 0.8. Chest x-ray revealed pulmonary edema. Her white count was elevated and they thought maybe she had hospital acquired pneumonia but she has recently been on steroids during her last hospitalization and was discharged home on a Medrol Dosepak. So, this may be a reflection of that. They told me her temperature was 101 degrees in the emergency room but the highest one I could see documented was 100.5. In any case, she has been admitted. She has already been seen by Cardiology and Pulmonary. She is currently in the ICU and resting comfortably with supplemental oxygen. PAST MEDICAL HISTORY She has a history of diastolic CHF, asthma, anemia, diabetes mellitus type unknown, chronic kidney disease, dementia, hypertension, hyperlipidemia, osteoarthritis, seizures, history of tobacco use. PAST SURGICAL HISTORY Hysterectomy, cholecystectomy, appendectomy, coronary bypass grafting, left lower lobectomy. SOCIAL HISTORY She lives with her , reformed smoker. No alcohol or street drug use. FAMILY HISTORY Noncontributory. ALLERGIES Iodine and sulfa drugs. MEDICATIONS PRIOR TO ADMISSION 1. Calcium 600 mg b.i.d. 2. Lipitor 40 mg daily. 3. Singulair 10 mg daily. 4. Hydralazine 100 mg t.i.d. Unit #: [id number] #: [id number] Patient: COLBY BORGES 5. Clonidine 0.3 mg t.i.d. 6. Lorazepam 1 mg t.i.d. 7. Coreg 12.5 mg p.o. b.i.d. 8. Norvasc 5 mg p.o. daily. 9. Aldactone 12.5 mg p.o. daily. 10. Sodium bicarb 650 mg p.o. daily. 11. Ventolin inhaler p.r.n. 12. NovoLog 8 units subcu t.i.d. with meals. 13. Lantus 20 units subcu b.i.d. 14. Calcium plus D one p.o. b.i.d. PHYSICAL EXAMINATION GENERAL APPEARANCE: She is awake, sleeping, easily aroused. VITAL SIGNS: T-max since admission 100.5. Pulse 82. Respirations 19. Original blood pressure 230/104. Currently, 149/54. O2 sats currently 98%. HEENT: Unremarkable except for the nasal pillow in place. She does appear pale and appears older than her stated age. NECK: Supple without JVD, bruits, adenopathy or thyromegaly. CHEST: Diffusely decreased breath sounds with scant bibasilar rales but no rhonchi or wheezes heard. HEART: Regular rate and rhythm without any murmurs, rubs or gallops. ABDOMEN: Soft, nondistended, nontender with positive bowel sounds and no hepatosplenomegaly. EXTREMITIES: No clubbing, cyanosis or edema. GENITOURINARY: Deferred. RECTAL: Deferred. NEUROLOGIC: Grossly intact. DIAGNOSTIC STUDIES LABORATORY: Again, her lactic acid was 2.8, 0.8 on repeat. Coags were normal. Sodium 133, CO2 15, blood sugar 215, BUN 56, creatinine 2.3, GFR 20. White count 24.3. The rest of the CBC normal. BNP 1,007. ABG on two liters showed a pH of 7.315, pCO2 32, pAO2 64. On BiPAP at 40%, pH was 7.358, pCO2 31, pAO2 134. Urinalysis: 3+ protein, 250 mg/dL of glucose, procalcitonin 1.32. Troponin, first one, less than 0.05. The second one was 0.12. CARDIOVASCULAR: EKG was difficult to read because there is so much baseline wander and artifact. There is some poor R wave progression in the anterior leads consistent with an old septal [place]. It is difficult to read any ST or T wave abnormalities because of the fluctuation and the tracing in the baseline. IMPRESSION 1. Acute on chronic respiratory failure. 2. Metabolic acidosis. 3. Chronic kidney disease stage 3. 4. Diastolic CHF, acute on chronic. 5. Asthma. 6. Type 2 diabetes mellitus. 7. Hypertension. 8. Hyperlipidemia. 9. Osteoarthritis. 10. Hyponatremia. 11. History of seizure disorder. PLAN Unit #: [id number] #: [id number] Patient: COLBY BORGES Nitro paste. IV Lasix. Antibiotics. Steroids. Accu-Cheks. DVT prophylaxis. GI prophylaxis. As said before, Pulmonary and Cardiology have been consulted. Repeat cardiac enzymes have been ordered. We will also consult Nephrology and her increase her sodium bicarb because of the metabolic acidosis and renal insufficiency. Dictated by John Banuelos M.D. JOSHUA/willy TD: 04/27/2017 14:14 JOB #: [id number] HISTORY AND PHYSICAL Page 1 of 1 X John Banuelos MD HISTORY AND PHYSICAL
--- NOTE | ~2017-04-27 | CO ---
Unit #: [id number] #: [id number] Patient: COLBY BORGES [id number] [facility] [address] [place], [place] [address] [id number] I MR#: [id number] NAME: COLBY BORGES ROOM: 304 Age: 72 Sex: F Admission Date: 04/27/2017 : 1945 Attending Physician: Norma Castro M.D. Primary Care Physician: Norma Castro M.D. Consultation Date: 04/30/2017 CONSULTATION REPORT DISCUSSION Ms. Nova is a 72-year-old white female, seen on 04/30/2017 in room 304, bed 1, at [facility]. The patient was pleasant, cooperative. Affect bright. Mood good. Sitting comfortably in chair. The patient's and daughter were in the same room. The patient seemed more alert, awake, and able to smile and laugh. The patient denied any thoughts of harming self or others, still some confusion, and problem with memory, but overall making progress. Vital signs; pulse 81, blood pressure 144/50. REVIEW OF SYSTEMS Complete review of systems unremarkable. MENTAL STATUS EXAMINATION General appearance, the patient dressed in hospital attire, sitting comfortably in chair, made good eye contact, cooperative. Attention span and concentration, fair. Speech, slow, regular in rate. Oriented in time, place, and person. Mood and affect were labile. Thought process, circumstantial. Thought content, the patient denied any thoughts of harming self or others or any hallucination. Recent and remote memory, fair to poor. Language, fair. Fund of knowledge, fair. Insight and judgment, fair to slightly impaired. 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 ASSESSMENT AND PLAN 1. Supportive psychotherapy and psychoeducation provided to the patient and family. 2. Educated about benefits and side effects of medication and course and prognosis of illness. 3. If needed, consider further adjustment of medication. Please feel free to call if any questions, telephone #[phone]. Dictated by... Anurag Preston M.D. AMAN/milton TD: 05/01/2017 05:42 JOB #: [id number] Unit #: [id number] #: [id number] Patient: COLBY BORGES CONSULTATION REPORT Page 1 of 1 X Anurag Preston MD CONSULTATION REPORT
--- NOTE | ~2017-04-27 | CO ---
Unit #: [id number] #: [id number] Patient: ROHINI BORGES [id number] [address] [address] [id number] I MR#: [id number] NAME: ROHINI BORGES ROOM: 304 Age: 72 Sex: F Admission Date: 04/27/2017 : 1945 Attending Physician: Norma Castro M.D. Primary Care Physician: Norma Castro M.D. Consultation Date: 05/01/2017 CONSULTATION REPORT REASON FOR CONSULTATION Followup. DISCUSSION Ms. Rohini Borges is a 72-year-old white female, seen in room 304, bed 1 on 05/01/2017 at [facility]. The patient was compliant, cooperative, redirectable, still confused, problem with memory, but no agitation. The patient's was in the room, reports that the patient is making much progress, but concerned about Risperdal being very expensive and looking for alternative placement as it is costing around 300 dollars. The patient did not show any agitation, easily redirectable, sleeping good. No side effects from medication. The patient's vital signs; temperature 97.9, pulse 73, respirations 16, blood pressure 155/57, and oxygen saturation 98%. REVIEW OF SYSTEMS Complete review of systems unremarkable. MENTAL STATUS EXAMINATION General appearance; the patient dressed casually in hospital attire. Attention span and concentration, poor. Speech; slow in volume and rate, long pause. Oriented in self and place. Mood and affect, labile. Thought process, circumstantial. Thought content, guarded and paranoid, but denied any thoughts of harming self or others. Recent and remote memory, poor. Language, fair. Fund of knowledge, fair to slightly impaired. Insight and judgment, fair to slightly impaired. DIAGNOSES Psychiatric: Major neurocognitive disorder secondary to Alzheimer disease with behavioral disturbances, F02.81; anxiety disorder, not otherwise specified, F40.01. ASSESSMENT/PLAN 1. Supportive psychotherapy and psychoeducation provided to the patient and family. 2. Educated about benefits and side effects of medication and course and prognosis of illness to the patient and family, but the patient unable to comprehend much. 3. Recommending at this time to discontinue Concerta and start the patient on Haldol 0.5 mg at bedtime to help with the above-mentioned symptom. Continue with the Ativan as advised, if needed. Please feel free to call if any questions, telephone #[phone]. Unit #: [id number] #: [id number] Patient: ROHINI BORGES Dictated by... Linda Vega/milton TD: 05/02/2017 22:35 JOB #: [id number] CONSULTATION REPORT Page 1 of 1 X Anurag Preston MD X CONSULTATION REPORT
[~2017-04-27 02:54] MED LIST changes: +ALBUTEROL17 GM; +ALBUTEROL2.5 MG/3 M; +AMLODIPINE BESYL5 MG PO; +ANTACID650 MG PO; +CALCIUM 500 +1 EAC3 PO; +CALCIUM500 M1 PO; +HYDRALAZINE HC100 MG PO; +NOVOLOG FL100 UNIT/1 SUBQ; +PREDNISONE10 MG PO; +PROCRIT2000 UNIT/
[2017-04-27 03:36] LABS: BASOPHIL# 0.1 X10e3 (0-0.3); BASOPHIL% 0.4 % (0-2.5); DIFF IND YES; EOSINOPHIL# 0.7 X10e3 (0-0.7); EOSINOPHIL% 2.8 % (0.0-7.0); HEMATOCRIT 40.1 % (35.0-45.0); HEMOGLOBIN 12.4 gm/dL (12.0-16.0); MEAN CELL VOLUME 88.2 FL (83-96); MEAN CORPUSCULAR HEMOGLOBIN 27.3 PG (28-34); MONOCYTE# 0.9 X10e3 (0-1.0); MONOCYTE% 3.8 % (3.0-12.0); NEUTROPHIL# 20.6 X10e3 (1.5-7.1); PLATELET COUNT 346 X10e3 (140-420); RED BLOOD COUNT 4.55 X10e (3.90-5.30); RED CELL DISTRIBUTION WIDTH 15.9 % (11.0-15.5); WHITE BLOOD COUNT 24.3 X10e3 (4.0-10.5)
[2017-04-27 03:40] LABS: POC - CKMB <1.0 ng/mL (0.0-7.9); POC - TROPONIN <0.05 ng/mL (<=0.05)
[2017-04-27 03:44] LABS: PARTIAL THROMBOPLASTIN TIME 25.6 SECONDS (23.5-31.3); PROTHROMBIN TIME (PATIENT) 10.8 SECONDS (10.0-11.7)
[2017-04-27 03:44] LABS: ARTERIAL BLD GAS O2 SATURATION 86.3 % (90.0-100.0); ARTERIAL BLOOD GAS ART SITE RIGHT BRACHIAL; ARTERIAL BLOOD GAS CARBOXY HB 1.4 %sat (0.0-9.0); ARTERIAL BLOOD GAS DELIVERY NASAL CANNULA; ARTERIAL BLOOD GAS HCO3 16.5 mmol/L; ARTERIAL BLOOD GAS MET HB 0.7 %sat (0.0-2.0); ARTERIAL BLOOD GAS PCO2 32.4 mmHg (35.0-45.0); ARTERIAL BLOOD GAS pH 7.315 (7.350-7.450); ARTERIAL DRAW? YES
[2017-04-27 03:57] LABS: ALBUMIN SERUM 3.4 g/dL (3.5-5.0); ANISOCYTOSIS SL; BILIRUBIN, DIRECT 0.1 mg/dL (0.0-0.2); BILIRUBIN,INDIRECT 0.5 mg/dL (0.0-0.9); BILIRUBIN,TOTAL 0.6 mg/dL (0.2-2.0); BUN/CREATININE RATIO 24.34; CREATININE SERUM 2.3 mg/dL (0.6-1.4); GLOM FILT RATE Estimated 20.4 mL/min (>60); PLATELET ESTIMATE NORMAL (NORMAL); POTASSIUM 4.7 mmol/L (3.5-5.1); PROTEIN TOTAL SERUM 6.5 g/dL (6.0-8.3)
[2017-04-27 03:58] LABS: HYPERSEGMENTED POLYS PRESENT
[2017-04-27 05:03] LABS: ARTERIAL BLD GAS O2 SATURATION 99.4 % (90.0-100.0); ARTERIAL BLOOD GAS ALLEN TEST NORMAL; ARTERIAL BLOOD GAS ART SITE RIGHT RADIAL; ARTERIAL BLOOD GAS CARBOXY HB 1.3 %sat (0.0-9.0); ARTERIAL BLOOD GAS HCO3 17.4 mmol/L; ARTERIAL BLOOD GAS MET HB 1.1 %sat (0.0-2.0); ARTERIAL BLOOD GAS pH 7.358 (7.350-7.450); ARTERIAL DRAW? YES
[2017-04-27 05:04] LABS: ARTERIAL BLOOD GAS DELIVERY BIPAP 15/6
[2017-04-27 06:07] LABS: URINE SOURCE CATH
[2017-04-27 06:15] LABS: URINE APPEARANCE CLEAR; URINE BILIRUBIN NEG (NEG); URINE BLOOD NEG (NEG); URINE COLOR YELLOW; URINE GLUCOSE 250 MG/DL (NEG); URINE KETONE NEG (NEG); URINE LEUKOCYTE ESTERASE NEG (NEG); URINE NITRATE NEG (NEG); URINE PH 5.5 (5-8); URINE PROTEIN 3+ (NEG); URINE SPECIFIC GRAVITY 1.013 (1.003-1.035); URINE UROBILINOGEN 0.2 MG/DL (NEG)
[2017-04-27 06:17] LABS: URBCS1 AUWI 0-2 /[HPF] (0-2); URINE BACTERIA AUWI NEG (NEGATIVE); URINE SQUAMOUS EPITHELIAL CELL OCC /[HPF]; UWBCS1 AUWI 0-2 (0-5)
[2017-04-27 06:32] LABS: CULTURE INDICATED? NO
[2017-04-27 06:34] LABS: URINE AMORPHOUS SEDIMENT AMORP URATES
[2017-04-27 08:49] LABS: CK TOTAL 19 IU/L (26-140)
[2017-04-27 08:53] LABS: BUN/CREATININE RATIO 25.71; CREATININE SERUM 2.1 mg/dL (0.6-1.4); GLOM FILT RATE Estimated 22.8 mL/min (>60); POTASSIUM 4.6 mmol/L (3.5-5.1)
[2017-04-27 09:23] LABS: PROCALCITONIN 1.32 NG/ML
[2017-04-27 12:26] LABS: CK TOTAL 19 IU/L (26-140)
[2017-04-28 06:20] LABS: CK TOTAL 18 IU/L (26-140)
[2017-04-28 06:23] LABS: CALCIUM SERUM 8.5 mg/dL (8.4-10.2); CREATININE SERUM 2.6 mg/dL (0.6-1.4); GLOM FILT RATE Estimated 17.6 mL/min (>60); POTASSIUM 4.7 mmol/L (3.5-5.1)
[2017-04-28 06:26] LABS: BASOPHIL# 0.1 X10e3 (0-0.3); BASOPHIL% 0.5 % (0-2.5); HEMATOCRIT 38.5 % (35.0-45.0); HEMOGLOBIN 12.4 gm/dL (12.0-16.0); LYMPHOCYTE# 0.6 X10e3 (1.0-3.5); MEAN CELL VOLUME 86.8 FL (83-96); MEAN CORPUSCULAR HEMOGLOBIN 27.9 PG (28-34); MEAN CORPUSCULAR HGB CONC 32.1 g/dL (30-36); MONOCYTE# 0.6 X10e3 (0-1.0); MONOCYTE% 2.9 % (3.0-12.0); NEUTROPHIL# 17.6 X10e3 (1.5-7.1); NEUTROPHIL% 93.6 % (40-75); PLATELET COUNT 342 X10e3 (140-420); RED BLOOD COUNT 4.44 X10e (3.90-5.30); RED CELL DISTRIBUTION WIDTH 15.7 % (11.0-15.5); WHITE BLOOD COUNT 18.9 X10e3 (4.0-10.5)
[2017-04-28 06:36] LABS: DIFF IND NO
[2017-04-29 04:39] LABS: BASOPHIL% 0.2 % (0-2.5); HEMATOCRIT 30.7 % (35.0-45.0); LYMPHOCYTE# 0.6 X10e3 (1.0-3.5); MEAN CELL VOLUME 86.8 FL (83-96); MEAN CORPUSCULAR HEMOGLOBIN 28.1 PG (28-34); MEAN CORPUSCULAR HGB CONC 32.4 g/dL (30-36); MEAN PLATELET VOLUME 7.7 FL (6.5-11.5); MONOCYTE# 0.8 X10e3 (0-1.0); MONOCYTE% 6.3 % (3.0-12.0); NEUTROPHIL% 88.5 % (40-75); PLATELET COUNT 225 X10e3 (140-420); RED BLOOD COUNT 3.54 X10e (3.90-5.30); RED CELL DISTRIBUTION WIDTH 15.8 % (11.0-15.5); WHITE BLOOD COUNT 12.4 X10e3 (4.0-10.5)
[2017-04-29 04:40] LABS: HEMOGLOBIN 9.9 gm/dL (12.0-16.0)
[2017-04-29 04:41] LABS: DIFF IND NO
[2017-04-29 05:03] LABS: BUN/CREATININE RATIO 26.33; CALCIUM SERUM 8.1 mg/dL (8.4-10.2); GLOM FILT RATE Estimated 14.8 mL/min (>60); POTASSIUM 4.8 mmol/L (3.5-5.1)
[2017-04-30 05:20] LABS: BASOPHIL% 0.5 % (0-2.5); EOSINOPHIL% 0.4 % (0.0-7.0); HEMATOCRIT 31.4 % (35.0-45.0); HEMOGLOBIN 10.2 gm/dL (12.0-16.0); LYMPHOCYTE# 1.3 X10e3 (1.0-3.5); LYMPHOCYTE% 13.1 % (17.0-45.0); MEAN CELL VOLUME 86.4 FL (83-96); MEAN CORPUSCULAR HEMOGLOBIN 28.1 PG (28-34); MEAN CORPUSCULAR HGB CONC 32.6 g/dL (30-36); MEAN PLATELET VOLUME 7.6 FL (6.5-11.5); MONOCYTE# 0.7 X10e3 (0-1.0); MONOCYTE% 6.8 % (3.0-12.0); NEUTROPHIL# 8.1 X10e3 (1.5-7.1); NEUTROPHIL% 79.2 % (40-75); PLATELET COUNT 204 X10e3 (140-420); RED BLOOD COUNT 3.63 X10e (3.90-5.30); RED CELL DISTRIBUTION WIDTH 16.5 % (11.0-15.5); WHITE BLOOD COUNT 10.3 X10e3 (4.0-10.5)
[2017-04-30 05:23] LABS: DIFF IND NO
[2017-04-30 06:22] LABS: BUN/CREATININE RATIO 26.55; CREATININE SERUM 2.9 mg/dL (0.6-1.4); GLOM FILT RATE Estimated 15.4 mL/min (>60); POTASSIUM 4.5 mmol/L (3.5-5.1)
[2017-04-30 07:19] LABS: PROCALCITONIN 3.56 NG/ML
[2017-05-01] MEDS ORDERED: HALDOL0.5 MG PO (18:50)
[2017-05-01] MEDS ORDERED: FUROSEMIDE40 MG PO (18:51)
[2017-05-01] MEDS ORDERED: APAP325 MG PO (18:52)
[2017-05-01] MEDS ORDERED: ALDACTONE25 MG PO (18:53)
[2017-05-01] MEDS ORDERED: ISOSORBIDE DINI40 M1 PO (18:54)
== END 2017-05-01 20:06 | disposition home health service (06) | DRG 291 ==
LOC: CED 02:54 → CEDOF 04:25 → C3A PCU 04:25 → CICCU3 04:25 → CED 04:27 → CICCU3 04:27 → CEDOF 04:27 → CICCU3 05:59 → C3A PCU 04-28 14:32
PROVIDERS: Emergency Medicine; Internal Medicine; Internal Medicine Cardiovascular Disease; Physician Assistant Medical
DX: I13.0 Hypertensive heart and chronic kidney disease with heart failure and stage 1 through stage 4 chronic kidney disease, or unspecified chronic kidney disease (principal); I50.33 Acute on chronic diastolic (congestive) heart failure; J96.21 Acute and chronic respiratory failure with hypoxia; E87.2 Acidosis; N18.4 Chronic kidney disease, stage 4 (severe); N17.9 Acute kidney failure, unspecified; I27.2 Other secondary pulmonary hypertension; E87.1 Hypo-osmolality and hyponatremia; F02.81 Dementia in other diseases classified elsewhere, unspecified severity, with behavioral disturbance; J44.1 Chronic obstructive pulmonary disease with (acute) exacerbation; E11.22 Type 2 diabetes mellitus with diabetic chronic kidney disease; Z79.4 Long term (current) use of insulin; J45.909 Unspecified asthma, uncomplicated; E78.5 Hyperlipidemia, unspecified; M19.90 Unspecified osteoarthritis, unspecified site; G40.909 Epilepsy, unspecified, not intractable, without status epilepticus; G30.9 Alzheimer's disease, unspecified; F41.9 Anxiety disorder, unspecified; E11.40 Type 2 diabetes mellitus with diabetic neuropathy, unspecified; E11.21 Type 2 diabetes mellitus with diabetic nephropathy; E11.319 Type 2 diabetes mellitus with unspecified diabetic retinopathy without macular edema; Z88.2 Allergy status to sulfonamides; Z91.041 Radiographic dye allergy status; Z87.891 Personal history of nicotine dependence; Z95.1 Presence of aortocoronary bypass graft; Z90.710 Acquired absence of both cervix and uterus; Z90.49 Acquired absence of other specified parts of digestive tract; D64.9 Anemia, unspecified; Z66 Do not resuscitate; I08.0 Rheumatic disorders of both mitral and aortic valves; I25.10 Atherosclerotic heart disease of native coronary artery without angina pectoris; E11.649 Type 2 diabetes mellitus with hypoglycemia without coma
CPT/HCPCS: 36415; 36600; 71010; 80048; 80076; 80200; 80202; 81003; 82308; 82550; 82553; 82803; 82947; 83605; 83735; 83880; 84443; 84484; 85025; 85610; 85730; 87040; 87086; 93005; 93975; 94640; 94660; 94760; 99291; J0696; J1630; J1650; J1815; J1940; J2405; J2543; J2920; J2930; J3260; J3370